=== PATIENT | male | born 1960 | race Caucasian/White ===

== ENCOUNTER → 2017-01-22 | Day surgery (SDC) | payer BC ==
[~2017-01-22] VITALS: Ht 175.2 cm; Wt 88.0 kg
[~2017-01-22] MED LIST: ALBUTEROL2.5 MG/0.5 INH; ASMANEX220 MCG INH; ASPIRIN CHILDRE81 MG PO; AVELOX400 MG PO; BENADRYL25 MG PO; DOXYCYCLINE HY100 M3 PO; FISH OIL CONC1000 M1 PO; HYDROCODONE BIT1 T11 PO; KEFLEX500 MG PO; LEVOFLOXACIN500 MG PO; LIVALO4 MG PO; MAGNESIUM ZINC PO; NAPROSYN500 MG PO; NEURONTIN800 MG PO; NORCO 325 MG-51 TAB PO; OMEPRAZOLE MAGN20 MG PO; PREDNISONE20 M1 PO; PROAIR HFA8.5 GM INH; ROBITUSSIN DM 105 ML PO; SYNTHROID0.125 MG PO; TOBREX OPHTH S2.5 ML OPH; TOBREX0.3% OP; TRAMADOL HCL50 MG PO; VENTOLIN0.09 MG/AC INH; VICO10300 PO; VICODIN ES 7501 TA1 PO; VICODIN PO; VITAMIN C1000 M5 PO; VITAMIN D34000 UNIT PO; ZOFRAN4 MG PO
--- NOTE | ~2017-01-22 | O ---
[place], [place] OPERATIVE NOTE NAME: GARY RIVERS [facility] #: [id number] UNIT #: [id number] ROOM: DOCTOR: NICHOLAS HUTCHISON DO BIRTHDATE: [birth year] DOS: 01/22/2017 PREOPERATIVE DIAGNOSIS: Left hand mass at the second metacarpophalangeal joint dorsally. POSTOPERATIVE DIAGNOSIS: Left hand mass at the second metacarpophalangeal joint dorsally. OPERATIVE PROCEDURE: Excision of the mass at the left hand second metacarpophalangeal joint. SURGEON: Nicholas Hutchison DO REMELT [employer] OPERATOR: Yelena. ANESTHESIA: Astrid, CROP RESEARCH SCIENTIST, Local, MAC. INDICATIONS: The patient is a 56-year-old male with a history of a laceration to his left hand at the second metacarpophalangeal joint dorsally. The laceration was about 6 or 7 months ago and he then developed a mass approximately 2 x 1.5 cm. The mass continued to enlarge and became painful. X-rays were negative. The risks and benefits of the procedure were explained to the patient preoperatively. Preoperative labs and x-rays were obtained. PROCEDURE IN DETAIL: The left hand was marked in the holding room. The patient was brought to the operative suite. Timeout was performed. Monitored anesthetic was performed by Anesthesia. The area about the second metacarpophalangeal joint dorsally was injected with Marcaine 0.5% plain. The hand was prepped and draped in the usual orthopedic manner. Tourniquet was placed at the wrist. The hand was elevated and the tourniquet was inflated to 250 mmHg. An incision was made sharply at the metacarpophalangeal joint of the index finger on the dorsal surface in a zigzag fashion. Subcutaneous tissue was spread with tenotomy scissors down to the level of the mass. Under loupe magnification, the mass was dissected down to the level of the extensor tendon. The mass appeared to be a fibrous bundle of tissue and this was removed and sent to the lab for further study. The extensor tendons were identified and evaluated and there appeared to be some damage to the extensor melo mechanism. This allowed the extensor digitorum to sublux in a radial direction. The extensor melo was repaired with a 3-0 Vicryl. Flexion and extension was passively performed and the tendon appeared to ride appropriately. No further fibrotic tissue was noted. The area was copiously irrigated with normal saline and closed with 4-0 Prolene in a horizontal mattress suture fashion. A dressing was applied, Xeroform, 4 x 4s, Webril, and an David bandage. The tourniquet was released. The patient was taken to recovery room in satisfactory condition. COUNTS: Sponge and needle counts correct. ESTIMATED BLOOD LOSS: 2 mL. DRAINS: None. [place], [place] OPERATIVE NOTE NAME: RIVERSGARY M UNIT #: [id number] ROOM: DOCTOR: NICHOLAS HUTCHISON DO BIRTHDATE: [birth year] PACKING: None. COMPLICATIONS: None. SPECIMENS: The fibrotic mass was sent to lab for further study. FINDINGS: Left hand fibrotic mass of the second metacarpophalangeal joint dorsally and tearing of the extensor melo mechanism. NICHOLAS HUTCHISON DO CM:OPRECORD:OPERATIVE NOTE [id number] NICHOLAS HUTCHISON DO 01/22/17 174 interface
== END | disposition home or self-care (01) ==
LOC: SDC 01-16 09:30
DX: R22.32 Localized swelling, mass and lump, left upper limb (principal); M79.5 Residual foreign body in soft tissue; M67.844 Other specified disorders of tendon, left hand; F41.9 Anxiety disorder, unspecified; F32.9 Major depressive disorder, single episode, unspecified; E07.9 Disorder of thyroid, unspecified; K21.9 Gastro-esophageal reflux disease without esophagitis; J44.9 Chronic obstructive pulmonary disease, unspecified; J45.909 Unspecified asthma, uncomplicated; M79.7 Fibromyalgia; Z82.49 Family history of ischemic heart disease and other diseases of the circulatory system; F17.210 Nicotine dependence, cigarettes, uncomplicated

== ENCOUNTER → 2017-02-05 | Outpatient (CLI) | payer BC | END | disposition home or self-care (01) | LOC: CT 08:55 | DX: J98.11 Atelectasis (principal); F17.200 Nicotine dependence, unspecified, uncomplicated ==

== ENCOUNTER 2017-03-02 23:08 | Inpatient (IN) | payer BC ==
[~2017-03-02] VITALS: Ht 175.2 cm; Wt 85.8 kg
--- NOTE | ~2017-03-02 | CON ---
[place], [place] REPORT OF CONSULTATION NAME: GARY RIVERS [facility] #: [id number] UNIT #: [id number] ROOM: 407 DOCTOR: SEAN RICHTER MDANA BIRTHDATE: [birth year] DOS: 03/03/2017 PULMONARY CONSULTATION EVALUATION AND MANAGEMENT REASON FOR CONSULTATION: To assess the patient for ongoing acute respiratory symptoms, shortness breath and others. HISTORY OF PRESENT ILLNESS: This is a 56-year-old white male for the patient who has been complaining of symptoms of shortness of breath, which was present for the past several weeks. The symptoms have been noted significantly worse in the past 3-4 days. He presented to the Emergency Room where he has been assessed and currently hospitalized for the patient for the management of acute exacerbation of COPD. The patient was noted with symptoms of significant chest tightness. Denies any pain in the chest. The coughing has been noted moderate to severe, nonproductive in nature and frequently. He was also noted wheezing intermittently. The patient denies symptoms of hemoptysis or chest trauma. REVIEW OF SYSTEMS: CONSTITUTIONAL: He does complain of symptoms of fatigue and tiredness without any symptoms of fever or chills. EYES: Denies any burning, redness, or tenderness. EARS, NOSE, THROAT SYMPTOMS: No sore throat, hoarseness, otalgia, postnasal drainage. CARDIOVASCULAR SYSTEM: Denies anginal pain, edema or pain of the lower extremities or palpitations. GASTROINTESTINAL SYMPTOMS: Denies dysphagia, nausea, vomiting, diarrhea, abdominal pain, hematemesis, melena or hematochezia. SKIN: No lesions or rashes. CENTRAL NERVOUS SYSTEM: Denies dizziness, headache, diplopia or syncopal episodes. Remaining systems were reviewed with the patient, they were noted all negative. PAST MEDICAL HISTORY: Noted, 1. History of bronchial asthma for the patient, severity unknown at the present time. 2. History of fibromyalgia. 3. Arthritis of the spine. 4. History of thyroid problem. 5. History of anxiety and depression. 6. History of hypercholesterolemia. 7. History of hiatal hernia. 8. History of intervertebral disk disease. SOCIAL HISTORY: The patient stated he is , has 6 children. Smoking started at his younger age, a pack of cigarettes per day and stated that he has not been smoking any cigarettes in the past 4 days. Denies any history of alcohol use or any illicit drug use. Denies any occupation related pulmonary exposure history. The patient stated that he has a disability for this patient, currently does not work related to fibromyalgia, back problems and breathing [place], [place] REPORT OF CONSULTATION NAME: GARY RIVERS UNIT #: [id number] ROOM: 407 DOCTOR: SEAN RICHTER MD,ANA BIRTHDATE: [birth year] issues. SURGICAL HISTORY: Described as lumbar laminectomy. FAMILY HISTORY: The patient was reported for coronary artery disease. MEDICATIONS: The current administered medications were noted as use of Flonase, aspirin, omeprazole, Synthroid, gabapentin, IV Solu-Medrol 30 mg q.8 hours, DuoNeb q.4 hours, Zithromax, and other p.r.n. medications administration. DRUG ALLERGY HISTORY: Noted for no known drug allergies. PHYSICAL EXAMINATION: GENERAL: This is a 56 years old male who has been currently noted without any acute distress at this time, sitting on the bed. Height of 5 feet 9 inches, weight of 189 pounds, BMI 27.9. VITAL SIGNS: Showed normal temperature, respiratory rate 16-20, heart rate of 93-62, blood pressure of 112/66-121/87. Pulse oxygen saturation of the patient recorded as saturation of % on room air. HEENT: Examination shows head was atraumatic. Eyes nonicterus. NECK: Supple. CARDIOVASCULAR SYSTEM: S1, S2 audible. LUNGS: The patient was noted without any crackles. Mild expiratory scattered wheezing was present. ABDOMEN: Flat, soft, nontender. Bowel sounds present. EXTREMITIES: Shows no edema, clubbing, or cyanosis. CENTRAL NERVOUS SYSTEM: Cranial nerves 2-12 intact. No focal deficit. SKIN: Visible. No lesions or rashes. MUSCULOSKELETAL SYMPTOMS: No obvious deformities. LABORATORY DATA: CBC of the patient on 03/02 for the patient was noted as normal CBC. The BMP of patient on 03/02 was essentially noted as normal. The chest x-ray, 1 view for the patient that was done on 03/02 shows basilar area of atelectasis for the patient without any acute pulmonary infiltration, hyperinflation of the lung was noted. IMPRESSION: 1. The patient who has been currently admitted to the hospital with progressive worsening of the respiratory symptoms with acute bronchial asthma exacerbation, severity unclarified for this patient with history of chronic nicotine dependence with recent tobacco cessation. 2. The patient with several other medical problems which has been known previously including hypothyroidism, intervertebral disk disease, fibromyalgia and others been treated as well. PLAN OF TREATMENT: Continue current dose of steroids, bronchodilators and the antibiotics. The patient already has an established appointment to be seen in my office in the next several days, which will be kept. If the patient needed to be discharged home, he could be discharged home on oral tapering prednisone, oral antibiotics and short acting bronchodilators. He has been also scheduled [place], [place] REPORT OF CONSULTATION NAME: GARY RIVERS UNIT #: [id number] ROOM: 407 DOCTOR: ANA HUA MD BIRTHDATE: [birth year] for the stress testing to be done today for this patient as well. ANA ESTRADA MD CM:CONSTR:REPORT OF CONSULTATION 1042 03/03/17 2213 interface
--- NOTE | ~2017-03-02 | WRIGHTHP ---
[place], [place] PATIENT HISTORY AND PHYSICAL EXAM NAME: GARY RIVERS [facility] #: [id number] UNIT #: [id number] ROOM: 407 DOCTOR: KODAK RICHARD MD BIRTHDATE: [birth year] DOS: 03/03/2017 HISTORY OF PRESENT ILLNESS: This patient is 28-rxnil-hog. Patient with complaints of chest tightness and shortness of breath. The patient states that he has been having flu-like illness last few days. Yesterday, he noticed chest tightness and increased shortness of breath, so decided to come into the Emergency Room. He denies having any fever, any chills, any abdominal pain, any nausea, and any emesis. Does not have any fever or chills. PAST MEDICAL HISTORY: Significant for; 1. Asthma for the last 5 years. He was diagnosed by Dr. Hernandes many years ago. He does not take any steroids, inhalers. He just uses ProAir inhaler. 2. Tobacco dependence, quit smoking about 4 days ago as per the patient. 3. Fibromyalgia. 4. Chronic low back pain for which he is on disability. MEDICATIONS: He is on are ascorbic acid 1000 mg daily, aspirin 81 daily, vitamin D 4000 units daily, gabapentin 800 t.i.d., levothyroxine 150 mcg daily, omeprazole 40 b.i.d., Vicodin 10 t.i.d. SOCIAL HISTORY: Nonsmoker, does not use any alcohol. ____ is a smoker of about half to 1 pack of cigarettes for the last 40 years. Denies using any alcohol. PHYSICAL EXAMINATION: GENERAL: He is awake and alert and oriented in no major distress. VITAL SIGNS: Blood pressure is 128/80, pulse of 50, respirations 24, temperature 97.7. LUNGS: Diminished breath sounds. No wheezes, rales or rhonchi heard this morning. HEART: Regular. ABDOMEN: Obese, soft, nontender. EXTREMITIES: Without any edema. ASSESSMENT AND PLAN: 1. The patient admitted with chest pain and tightness in the chest and shortness of breath. He was a heavy smoker, has increased risk factors for heart disease. We will be admitting, patient has been scheduled for an echocardiogram and a stress test. 2. Mild intermittent asthma poorly controlled from lack of using appropriate inhalers. He is only taking a rescue inhaler will add Asmanex to his regimen. 3. Tobacco dependence, advised against smoking. [place], [place] PATIENT HISTORY AND PHYSICAL EXAM [id number] #: [id number] ROOM: [facility] DOCTOR: KODAK RICHARD MD BIRTHDATE: [birth year] KODAK RICHARD MD CM:HISPHYS:PATIENT HISTORY AND PHYSICAL EXAMINATION [id number] KODAK RICHARD MD 03/03/17 0755 interface
--- NOTE | ~2017-03-02 | ST ---
[place], [place] EXERCISE STRESS TEST REPORT NAME: GARY RIVERS [facility] #: [id number] UNIT #: [id number] ROOM: 407 DOCTOR: MADHAV SANDERS MD BIRTHDATE: [birth year] DOS: 03/04/2017 EXERCISE CARDIOLITE STRESS TEST The patient is 56 years old, 68 inches tall and weighing 189 pounds. TECHNIQUE: The patient was stressed under standard Francis protocol and he exercised for total of 5 minutes and 15 seconds. The test was stopped because of patient's fatigue. He reached a maximum heart rate of 140 beats per minute, which was 85% of the PMI chart. Cardiolite was injected at 85% PMI chart. Maximum blood pressure was 142 systolic over 78 diastolic. The patient developed significant shortness of breath during the exercise phase. The patient's baseline EKG showed normal sinus rhythm at a heart rate of 76 beats per minute, normal cardiac axis, no significant ST-T abnormality. During the exercise and recovery phase, the patient did not develop any significant EKG abnormalities compatible with myocardial ischemia. No cardiac dysrhythmias were observed. The patient remained chest pain free, but he was short of breath all along or during the exercise. IMPRESSION: The patient with normal EKG part of the treadmill exercise test at 85% PMI chart. Nuclear scan result to be reported separately by Cardiology later today. MADHAV SANDERS MD CM:STRESS:EXERCISE STRESS TEST REPORT [id number] MADHAV SANDERS MD
--- NOTE | ~2017-03-02 | CON ---
[place], [place] REPORT OF CONSULTATION NAME: GARY RIVERS UNIT #: [id number] ROOM: 407 DOCTOR: UCHE DALTON MD BIRTHDATE: [birth year] DOS: 03/04/2017 GASTROENDOSCOPIC REPORT HISTORY OF PRESENT ILLNESS: This is a 56 years old patient who has presented from Emergency Room with shortness of breath and history of COPD, undergoing investigation. The patient has been on antibiotics, breathing treatment and pulmonary management. The patient has had history of colonic polyp. I have been consulted regarding management of the followup for colonic polyp and dyspepsia. PAST MEDICAL HISTORY: Associated with asthma exacerbation. PAST SURGICAL HISTORY: Minor corneal abrasion and lacerations. Laminectomy, colonoscopy and EGDs in the past. SOCIAL HISTORY: Smoker, nonalcohol consumer. FAMILY HISTORY: Coronary artery disease. MEDICATIONS: List has been reviewed. REVIEW OF SYSTEMS: In general, HEENT: Denies double vision, blurred vision. RESPIRATORY: Admits to shortness of breath and cough. CARDIOVASCULAR: Denies chest pain. DIGESTIVE SYSTEM: No hematemesis, no hematochezia. Dyspepsia, history of colonic polyp. Review of other systems within normal limits. PHYSICAL EXAMINATION: VITAL SIGNS: Stable. HEENT: Head normocephalic, nontraumatic. Mouth and buccal mucosa benign. NECK: Supple, no thyromegaly. CHEST: Symmetric anatomy, equal expansion. No wheeze now, no rhonchi now. HEART: Normal sinus rhythm, no gallop, no murmur. ABDOMEN: Soft. No hepato-organomegaly. Bowel sounds present. No pulsatile mass. EXTREMITIES: No cyanosis, no pedal edema. NEUROLOGIC: Alert, oriented to time, place, and person. Labs reviewed. Records reviewed. Pulmonary consultation is noticed. IMPRESSION: Fibromyalgia, asthma, hypothyroid issues, hyperlipidemia, hiatal hernia, colonic polyp, dyspepsia, anxiety, depression, chronic lower back pain history, and surgical approach. His H and H is 15 and 44, white blood cell 8. Basic metabolic panel within normal limits. GFR greater than 60. [place], [place] REPORT OF CONSULTATION NAME: GARY RIVERS UNIT #: [id number] ROOM: 407 DOCTOR: SHA DOUGLAS,UCHE LESLIEDATE: 60 PLAN AND DISCUSSION: We are going to make arrangement as outpatient followup for EGD and colonoscopy. UCHE DALTON MD CM:CONSTR:REPORT OF CONSULTATION 1026 03/05/17 0321 interface
--- NOTE | ~2017-03-02 | PR ---
[place], [place] PROGRESS NOTE [id number] #: [id number] ROOM: 407 DOCTOR: KODAK RICHARD MD BIRTHDATE: [birth year] DOS: 03/04/2017 SUBJECTIVE: The patient is doing fine without any complaint. Denies any chest pains, palpitations or shortness of breath. OBJECTIVE: VITAL SIGNS: Graphic trend shows a pressure 130/85, pulse of 86, respirations 18, temperature 97.4. LUNGS: Clear. HEART: Regular. ABDOMEN: Soft. EXTREMITIES: Without any edema. IMAGING: Echocardiogram shows mild LVH. ASSESSMENT AND PLAN: 1. Precordial chest pain, awaiting a stress test this morning. 2. Mild intermittent asthma, poorly controlled. The patient has been maximized steroid inhaler. 3. Tobacco dependence. The patient is advised against smoking. After the stress test is done today, the patient should be able to go home today. KODAK RICHARD MD CM:PNTRANS [id number] KODAK RICHARD MD 03/05/17 0124 interface
[2017-03-02 23:20] VITALS: BP 128/89
[2017-03-02] MEDS ORDERED: SYNTHROID0.15 MG PO (23:25)
[2017-03-02 23:57] VITALS: BP 112/82
[2017-03-02 23:57] LABS: BUN 16 mg/dl (7-24); CARBON DIOXIDE 24 mmol/L (21-32); CHLORIDE 109 mmol/L (98-107); EST GLOM FILT AFRICAN AMERICAN > 60 ml/min; GLUCOSE 88 mg/dL (65-99); POTASSIUM 4.3 mmol/L (3.5-5.1); SODIUM 144 mmol/L (136-145)
[2017-03-03] VITALS (7 sets, daily range): BP systolic 109–139; BP diastolic 53–87
[2017-03-03 00:03] LABS: BASO % 0.4 % (0.0-1.0); EOS # 0.1 10*3/uL (0.0-0.4); EOS % 1.6 % (1.0-4.0); HEMATOCRIT 44.4 % (42.0-52.0); HEMOGLOBIN 15.4 g/dl (14.0-18.0); LYMPH # 3.5 10*3/uL (1.3-4.4); LYMPH % 39.4 % (27.0-41.0); MEAN CELL VOLUME 89.5 fl (80.0-94.0); MEAN CORPUSCULAR HGB CONC 34.7 g/dl (33.0-37.0); MEAN PLATELET VOLUME 9.6 fl (9.6-12.3); MONO # 0.9 10*3/uL (0.1-1.0); MONO % 10.1 % (3.0-9.0); NEUT # 4.3 10*3/uL (2.3-7.9); NEUT % 48.4 % (47.0-73.0); PLATELET COUNT AUTOMATED 198 10*3/uL (130-400); RED BLOOD COUNT 4.96 10*6/uL (4.50-5.90); RED CELL DISTRI WIDTH 13.2 % (0-14.5); WHITE BLOOD COUNT 8.9 10*3/uL (4.8-10.8)
[2017-03-03] MEDS ORDERED: VICODIN PO (02:27)
[2017-03-03] MEDS ORDERED: NEBULIZER (07:06)
[2017-03-04] VITALS: BP 130/85
[2017-03-04] MEDS ORDERED: ARNUITY EL100 MCG/Ac INH (06:41)
[2017-03-04] MEDS ORDERED: CARDIZEM120 MG PO (06:42)
[2017-03-04] MEDS ORDERED: DUONEB 3 MG/3 ML3 M1 INH (06:42)
[2017-03-04 08:00] VITALS: BP 133/79
[2017-03-04 16:00] VITALS: BP 129/82
[2017-03-05] MEDS ORDERED: ACETAMINOPHEN &1 TA1 PO (13:48)
== END 2017-03-04 16:26 | disposition home or self-care (01) | DRG 203 ==
LOC: ED 23:08 → EDHOLD 03-03 01:44 → 4E 03-03 01:44
PROVIDERS: Emergency Medicine Emergency Medical Services
PROC: 4A02XM4 Measurement of Cardiac Total Activity, External Approach (ICD-10-PCS; principal; 2017-03-04)
DX: J45.21 Mild intermittent asthma with (acute) exacerbation (principal); J43.9 Emphysema, unspecified; F32.9 Major depressive disorder, single episode, unspecified; R07.2 Precordial pain; F17.200 Nicotine dependence, unspecified, uncomplicated; J45.909 Unspecified asthma, uncomplicated; E03.9 Hypothyroidism, unspecified; M79.7 Fibromyalgia; E78.5 Hyperlipidemia, unspecified; K44.9 Diaphragmatic hernia without obstruction or gangrene; K63.5 Polyp of colon; R10.13 Epigastric pain; F41.9 Anxiety disorder, unspecified; G89.29 Other chronic pain; M54.5 Low back pain; E78.00 Pure hypercholesterolemia, unspecified; K21.9 Gastro-esophageal reflux disease without esophagitis; Z80.3 Family history of malignant neoplasm of breast; Z79.82 Long term (current) use of aspirin; Z82.49 Family history of ischemic heart disease and other diseases of the circulatory system; Z79.899 Other long term (current) drug therapy

== ENCOUNTER 2017-03-05 13:38 | Inpatient (IN) | payer BC ==
[~2017-03-05] VITALS: Ht 175.2 cm; Wt 86.2 kg
--- NOTE | ~2017-03-05 | PROC NOTE ---
[place], [place] PROCEDURE NOTE NAME: GARY RIVERS [facility] #: [id number] UNIT #: [id number] ROOM: 520 DOCTOR: SEAN RICHTER MD,ANA BIRTHDATE: [birth year] DOS: 03/09/2017 PREOPERATIVE DIAGNOSIS: The patient's bronchoscopy is area of atelectasis right lower lobe with the patient's cough and leukocytosis. POSTOPERATIVE DIAGNOSES: The patient's bronchoscopy is area of atelectasis right lower lobe with the patient's cough and leukocytosis. PROCEDURE DESCRIPTION: Informed consent obtained from the patient. The patient brought to the OR and placed in supine position. Conscious sedation was administered by the Anesthesia Department. After achieving appropriate sedation, airway introduced into the mouth. Bronchoscope advanced into the airway into laryngeal area. Epiglottis and vocal cords were seen. The vocal cords were moving symmetrically with movements. Bronchoscope advanced through the vocal cord into the tracheal lumen. Tracheal lumen for the patient was noted with small amount of secretion in patient, which was suctioned out at the balwinder level. The balwinder noted. The right upper, right middle, right lower, left upper, lingular lower lobe bronchi were all examined. There was no significant secretion noted in his remaining endobronchial tree. The bronchial washing of the patient was taken in the right lower lobe endobronchial tree for this patient, which has been sent for the culture. Procedure well tolerated by the patient. Postoperative findings were discussed with the patient's spouse in detail after completion of the procedure. ANA ESTRADA MD CM:PROCNOTE:PROCEDURE NOTE [phone] ANA RICHTER MD
--- NOTE | ~2017-03-05 | PR ---
[place], [place] PROGRESS NOTE NAME: GARY RIVERS [facility] #: [id number] UNIT #: [id number] ROOM: 520 DOCTOR: SEAN RICHTER MD,ANA BIRTHDATE: [birth year] DOS: 03/09/2017 SUBJECTIVE: The patient was seen and examined on 03/09/2017. He has been noted comfortable patient. He has been noted with partial reduction of respiratory symptoms noted with a cough, which was noted nonproductive. There are symptoms of chest pain, chest tightness, the patient noted it to be partially decreased. OBJECTIVE: VITAL SIGNS: Normal temperature, respiratory rate 16, heart rate 75, blood pressure 140/82. Pulse oxygen saturation on room air was 94% saturation recorded. HEENT: Examination shows no acute change. NECK: Supple. CARDIOVASCULAR: S1, S2 audible. LUNGS: Shows decreased breath in the right lower lung. ABDOMEN: Soft, nontender. IMPRESSION: 1. The patient with area of atelectasis in the patient's right lower lobe, possibility of acute pneumonia suspected ____. 2. Rule out right diaphragmatic paralysis as well. 3. Leukocytosis remains persistent. PLAN OF TREATMENT: Continue antibiotics, bronchodilators and oxygen supplementation. Proceed with bronchoscopy as planned. The patient already noted n.p.o. past midnight for the procedure. Usual care, other further supportive treatment. Any other modification of treatment if necessary will be done after bronchoscopy. ANA ESTRADA MD CM:PNTRANS [phone] ANA RICHTER MD 03/10/17 0300 interface
--- NOTE | ~2017-03-05 | CON ---
[place], [place] REPORT OF CONSULTATION [id number] UNIT #: [id number] ROOM: 520 DOCTOR: SEAN RICHTER MD,ANA BIRTHDATE: [birth year] DOS: 03/06/2017 PULMONARY CONSULTATION EVALUATION AND MANAGEMENT This also would be considered history and physical examination of the patient for Dr. Higginbotham as well. REASON FOR ADMISSION AND CONSULTATION: Symptoms of shortness of breath. HISTORY OF PRESENT ILLNESS: This is a 56-year-old white male who has been recently admitted to the hospital. The patient was seen on 03/03/2017 as consultation for assessment of symptoms of shortness breath. He underwent cardiac stress testing as well and then discharged home on 03/04/2017. The patient returned back to the Emergency Room on 03/05/2017, stated that he has been noted with excessive severe pressure in the chest, which has been noted significantly worsened for this patient in the home settings. He has been using his nebulized bronchodilator for this patient, as stated that it has not been helping him to relieve his respiratory symptoms. Symptoms remain persistent from yesterday as well. He does have some cough, but there was no sputum expectoration. The patient denies any symptoms of chest pain. The shortness of breath of the patient occurred with moderate exertion as well. The wheezing of the patient also described at times. He denies symptoms of hemoptysis or any chest trauma. REVIEW OF SYSTEMS: CONSTITUTIONAL: He was still noted with symptoms of fatigue, tiredness as previously without any changes. Denies symptoms of fever or chills. EYES: Denies any burning, redness, or tenderness. EARS, NOSE, THROAT: No sore throat, hoarseness, otalgia, postnasal drainage or epistaxis. CARDIOVASCULAR: Denies anginal pain, edema of the lower extremities or palpitations. GASTROINTESTINAL: Denies dysphagia, nausea, vomiting, diarrhea, abdominal pain, hematemesis, melena, or hematochezia. SKIN: Denies lesions or rashes. MUSCULOSKELETAL: No acute joint pain. CENTRAL NERVOUS SYSTEM: Denies any diplopia, syncopal episode, tingling sensations. Remaining systems were reviewed with the patient, they were noted all negative. PAST MEDICAL HISTORY: Noted as: 1. Bronchial asthma, severity unknown. 2. Fibromyalgia. 3. Hypothyroidism. 4. General anxiety and depression. 5. Hypercholesterolemia. 6. Hiatal hernia as well. 7. Intervertebral disk disease. [place], [place] REPORT OF CONSULTATION NAME: GARY RIVERS UNIT #: [id number] ROOM: [facility] DOCTOR: SEAN RICHTER MD,ANA BIRTHDATE: [birth year] SOCIAL HISTORY: The patient is , has 6 children. Denies history of alcohol or illicit drug use. Tobacco use for this patient noted since younger age, a pack of cigarettes per day and not smoking any cigarettes so far at this time for the past 7 days. Denies any history of occupation related pulmonary exposure. The patient stated he has been disabled from his job because of fibromyalgia and some breathing issues. PAST SURGICAL HISTORY: Noted lumbar laminectomy. FAMILY HISTORY: Reported for coronary artery disease. MEDICATIONS: The home medications for the patient, which has been listed on admission, use of Cardizem-CD, aspirin, levothyroxine, Neurontin 800 mg q.8 hours, omeprazole and others. ALLERGIES: The drug allergy history of the patient noted as no known drug allergies. PHYSICAL EXAMINATION: GENERAL: A 56-year-old white male who has been currently sitting on the side of bed without any distress. Height of 5 feet 9 inches, weight of 190 pounds, BMI 28.0. VITAL SIGNS: For the patient, which have been recorded showed the temperature noted normal in last 24 hours. Respiratory rate of patient recorded 24-18. Heart rate 56-71, blood pressure 140/92-111/71. Pulse oxygen saturation of the patient noted on room air 93% saturation. HEENT: Examination shows head was atraumatic. Eyes nonicterus. NECK: Supple. CARDIOVASCULAR: S1, S2 is audible. LUNGS: The patient was noted without any crackles, rhonchi, or wheezing. Bronchial breathing for the patient was heard in the right lower portion of the lung. ABDOMEN: Soft, flat, nontender, bowel sounds present. CENTRAL NERVOUS SYSTEM: Nonfocal. EXTREMITIES: Showed no edema, clubbing, cyanosis. MUSCULOSKELETAL: No deformities. SKIN: No lesions or rashes. LABORATORY DATA: The myocardial Cardiolite stress test for patient that was done on 03/04/[address] Castillo, was described as a normal study for this patient. Left ventricular ejection fraction was also noted at 82%. BMP for this patient that was done yesterday on admission was noted essentially normal BMP, proBNP minimally elevated at 320 with normal troponin. CBC of the patient that was done on 03/05/2017, WBC count 13,000, otherwise normal CBC. Chest x-ray of the patient, 1 view, shows elevation of right hemidiaphragm with basilar area of atelectasis, right lower lobe. The finding was noted essentially the same as 03/02/2017. CT scan of the chest in January 2017 for this patient was also reviewed that shows elevation of right hemidiaphragm, basilar area of atelectasis and/or infiltration. [place], [place] REPORT OF CONSULTATION NAME: GARY RIVERS UNIT #: [id number] ROOM: [facility] DOCTOR: ANA HUA MD BIRTHDATE: [birth year] IMPRESSION: 1. The patient who has been currently admitted to the hospital with symptoms currently described as tightness in the chest, may be related to underlying anxiety disorder. Additionally, may be exacerbated because of the possibility of right diaphragmatic paralysis with area of atelectasis, pneumonia cannot be completely excluded with current area of atelectasis. 2. The patient with history of past tobacco use, recent tobacco cessation. 3. History of fibromyalgia. 4. Chronic intervertebral disk disease as well. 5. History of bronchial asthma and/or chronic obstructive pulmonary disease requiring further assessment as an outpatient. PLAN OF TREATMENT: The patient has been ordered a CT of the chest because the current symptoms of shortness of breath remains persistent, also ordering the fluoroscopy of the right diaphragm for this patient, rule out diaphragmatic paralysis. If the diaphragmatic paralysis confirmed, it probably would be idiopathic in origin unless any mediastinal abnormality detected with CTA of the chest. In the meantime, continue other previous treatment plan of management, usual care and the supportive therapies. ANA ESTRADA MD CM:CONSTR:REPORT OF CONSULTATION 1135 03/07/17 0504 interface
--- NOTE | ~2017-03-05 | PR ---
[place], [place] PROGRESS NOTE NAME: GARY RIVERS [facility] #: [id number] UNIT #: [id number] ROOM: 520 DOCTOR: SEAN RICHTER MD,ANA BIRTHDATE: [birth year] DOS: 03/10/2017 PULMONARY PROGRESS NOTE SUBJECTIVE: The patient has been noted without any ongoing acute respiratory complaints at this time. Minimal cough was noted. There was no sputum expectoration. There were no symptoms of chest pain. He has been ambulating. OBJECTIVE: VITAL SIGNS: Normal temperature, respiratory rate 20, heart rate 61, blood pressure 132/88. The pulse oxygen saturation on room air 93% saturation. HEENT: No acute change. NECK: Supple. CARDIOVASCULAR: S1, S2 audible. LUNGS: Decreased breath sounds in the right lower lung. ABDOMEN: Soft, nontender. LABORATORY DATA: Gram stain of the bronchial washing, moderate white blood cells, epithelial cells with moderate gram-positive cocci in pairs and clusters, few gram-positive bacilli and moderate budding yeast preliminarily noted as normal olayinka. The fluoroscopy of the right hemidiaphragm was noted consistent with finding of right diaphragmatic paralysis. IMPRESSION: 1. The patient with right lower lobe atelectasis, less infiltration pneumonia with leukocytosis. 2. Paralysis of the right hemidiaphragm. PLAN OF TREATMENT: Repeat another CBC of the patient this morning, monitor culture results, could be discharged home on oral antibiotics with outpatient followup for further pulmonary eval. Assessment and management has been discussed with the patient's spouse as well. ANA ESTRADA MD CM:PNTRANS [id number] ANA RICHTER MD 03/11/17 0513 interface
--- NOTE | ~2017-03-05 | PR ---
[place], [place] PROGRESS NOTE NAME: GARY RIVERS UNIT #: [id number] ROOM: 520 DOCTOR: ANA HUA MD BIRTHDATE: [birth year] DOS: 03/07/2017 PULMONARY PROGRESS NOTE SUBJECTIVE: The patient has been noted with partial improvement of the symptoms of tightness in the chest and shortness of breath, was getting intravenous antibiotics for the patient for the suspected acute pneumonia. The CTA of the chest for the patient was noted completed yesterday. OBJECTIVE: VITAL SIGNS: Showed normal temperature, respiratory rate 20, heart rate 83, blood pressure 133/77, pulse oxygen saturation was noted on room air 92% saturation. HEENT: Examination shows no acute change. NECK: Supple. CARDIOVASCULAR SYSTEM: S1, S2 audible. LUNGS: The patient was noted without any wheezing or crackles at present time. Decreased breath sounds in the right lower lung as previously noted. ABDOMEN: Soft, nontender. LABORATORY DATA: The CT of the chest for this patient that was done for this patient was reviewed for this patient shows area of infiltration and some atelectasis right lower lobe for the patient. The elevation of right hemidiaphragm was noted. There was no evidence of pulmonary embolism or other acute abnormalities. The PT/INR of the patient noted as normal today, 1.0. CMP this morning, normal BUN and creatinine. CBC today, WBC count 16.7, hemoglobin 13.6, hematocrit 40.8, platelet count of 216,000. IMPRESSION: 1. The patient with possibility of acute pneumonia. The patient with gram-positive organism for the patient with superimposed area of atelectasis. 2. Rule out right diaphragmatic paralysis for the patient. PLAN OF TREATMENT: The patient has been ordered the chest x-ray of the patient with fluoroscopy to rule out the right diaphragmatic paralysis which was pending at the present time. The results of the x-ray of the patient will be reviewed for this patient once the study is completed. In the meantime, continue the antibiotics, bronchodilators, oxygen supplementation. Monitor white cell count. Other supportive therapy, plan of management and care. Usual treatment. [place], [place] PROGRESS NOTE NAME: GARY RIVERS UNIT #: [id number] ROOM: 520 DOCTOR: ANA HUA MD BIRTHDATE: [birth year] ANA ESTRADA MD CM:MARKELLTRANS [id number] ANA RICHTER MD 03/08/17 0521 interface
--- NOTE | ~2017-03-05 | PR ---
[place], [place] PROGRESS NOTE [id number] UNIT #: [id number] ROOM: 520 DOCTOR: ANA HUA MD BIRTHDATE: [birth year] DOS: 03/08/2017 SUBJECTIVE: The patient has been noted without any acute new respiratory complaints at the present time still noted with the coughing and shortness of breath as previously with tightness in the chest intermittently. He was continued on the antibiotics. Denies symptoms of chest pain or any abdominal pain. OBJECTIVE: VITAL SIGNS: For the patient, which has been recorded showed the temperature of the patient noted as normal. The respiratory rate recorded at 20, heart rate of 74. The blood pressure noted 137/77. HEENT: Examination shows no acute change. NECK: Supple. CARDIOVASCULAR: S1, S2 is audible. LUNGS: The patient was noted without any wheezing or crackles. Decreased breath sounds in the right lower lung of the patient noted as previously. ABDOMEN: Soft, nontender and flat. EXTREMITIES: Showed no edema, clubbing or cyanosis. LABORATORY DATA: CMP for the patient that was done this morning was noted with normal BUN and creatinine. Glucose was normal. Remaining CMP is normal. CBC: WBC count 18.6, hemoglobin and hematocrit was normal, platelet count was normal. IMPRESSION: 1. The patient with a right lower lobe atelectasis, possibly superimposed acute pneumonia. 2. Rule out right diaphragmatic hemiparesis, most likely idiopathic if confirmed. PLAN OF TREATMENT: The patient has been assessed for bronchoscopy done tomorrow morning for further assessment of the area of atelectasis of the right lower lobe. In the meantime, continue the previous treatment, plan of management without any changes. Other supportive therapy, plan of management and risk and benefits of the procedure were discussed with the patient, and he was agreeable for the procedure. [place], [place] PROGRESS NOTE NAME: GARY RIVERS UNIT #: [id number] ROOM: 520 DOCTOR: ANA HUA MD BIRTHDATE: [birth year] ANA ESTRADA MD CM:PNTRANS [id number] ANA RICHTER MD 03/09/17 0245 interface
[~2017-03-05 13:38] MED LIST changes: +ARNUITY EL100 MCG/Ac INH; +CARDIZEM120 MG PO; +DUONEB 3 MG/3 ML3 M1 INH; +NEBULIZER; +SYNTHROID0.15 MG PO
[2017-03-05 13:42] VITALS: BP 116/85
[2017-03-05] MEDS ORDERED: ACETAMINOPHEN &1 TA1 PO (13:48)
[2017-03-05 14:15] LABS: HEMATOCRIT 42.7 % (42.0-52.0); HEMOGLOBIN 14.6 g/dl (14.0-18.0); MEAN CELL VOLUME 91.6 fl (80.0-94.0); MEAN CORPUSCULAR HGB 31.3 pg (27.0-31.0); MEAN CORPUSCULAR HGB CONC 34.2 g/dl (33.0-37.0); MEAN PLATELET VOLUME 9.4 fl (9.6-12.3); PLATELET COUNT AUTOMATED 199 10*3/uL (130-400); RED BLOOD COUNT 4.66 10*6/uL (4.50-5.90); RED CELL DISTRI WIDTH 13.6 % (0-14.5); WHITE BLOOD COUNT 13.8 10*3/uL (4.8-10.8)
[2017-03-05 14:32] LABS: BUN 18 mg/dl (7-24); CARBON DIOXIDE 27 mmol/L (21-32); CHLORIDE 108 mmol/L (98-107); EST GLOM FILT AFRICAN AMERICAN > 60 ml/min; GLUCOSE 93 mg/dL (65-99); POTASSIUM 4.1 mmol/L (3.5-5.1); SODIUM 144 mmol/L (136-145); TROPONIN I < 0.015 ng/ml (<0.045)
[2017-03-05 14:35] LABS: EOSINOPHIL # 0.1 10*3/uL (0-0.4); EOSINOPHILS 1 % (1-4); LYMPHOCYTE # 3.7 10*3/uL (1.3-4.4); MONOCYTE # 0.8 10*3/uL (0.1-1.0); NEUTROPHIL # 9.1 10*3/uL (2.3-7.9); NEUTROPHILS 66 % (47-73); TOTAL CELLS COUNTED 100 #CELLS
[2017-03-05 14:36] LABS: PLATELET SUFFICIENCY NORMAL (NORMAL)
[2017-03-05 14:59] VITALS: BP 115/76
[2017-03-05 16:00] VITALS: BP 118/60
[2017-03-05 20:42] VITALS: BP 120/56
[2017-03-06] VITALS: BP 111/71
[2017-03-06 08:00] VITALS: BP 140/92
[2017-03-06 12:00] VITALS: BP 126/76
[2017-03-06 16:00] VITALS: BP 112/70
[2017-03-06 20:00] VITALS: BP 138/74
[2017-03-07] VITALS: BP 135/88
[2017-03-07 06:56] LABS: BASO % 0.1 % (0.0-1.0); HEMATOCRIT 40.8 % (42.0-52.0); HEMOGLOBIN 13.8 g/dl (14.0-18.0); IG # 0.3 10*3/uL (0.0-0.1); LYMPH # 2.6 10*3/uL (1.3-4.4); LYMPH % 15.5 % (27.0-41.0); MEAN CELL VOLUME 91.5 fl (80.0-94.0); MEAN CORPUSCULAR HGB 30.9 pg (27.0-31.0); MEAN CORPUSCULAR HGB CONC 33.8 g/dl (33.0-37.0); MEAN PLATELET VOLUME 9.6 fl (9.6-12.3); MONO # 0.9 10*3/uL (0.1-1.0); MONO % 5.1 % (3.0-9.0); NEUT % 77.5 % (47.0-73.0); PLATELET COUNT AUTOMATED 216 10*3/uL (130-400); RED BLOOD COUNT 4.46 10*6/uL (4.50-5.90); RED CELL DISTRI WIDTH 13.4 % (0-14.5); WHITE BLOOD COUNT 16.7 10*3/uL (4.8-10.8)
[2017-03-07 07:13] LABS: PROTHROMBIN TIME 10.6 SECONDS (9.0-12.4)
[2017-03-07 07:19] LABS: ALBUMIN 3.2 gm/dl (3.1-4.5); ALKALINE PHOSPHATASE 57 U/L (45-117); BILIRUBIN, TOTAL 0.3 mg/dl (0.2-1.0); BUN 17 mg/dl (7-24); CARBON DIOXIDE 29 mmol/L (21-32); CHLORIDE 107 mmol/L (98-107); CHOLESTEROL 200 mg/dL (<200); EST GLOM FILT AFRICAN AMERICAN > 60 ml/min; GLUCOSE 122 mg/dL (65-99); HDL CHOLESTEROL 65 mg/dl (40-60); LDL CHOLESTEROL 121 mg/dL (9-159); MAGNESIUM 2.5 mg/dL (1.5-2.1); PHOSPHOROUS 3.7 mg/dL (2.5-4.9); POTASSIUM 4.2 mmol/L (3.5-5.1); SGOT/AST 40 IU/L (3-35); SGPT/ALT 132 U/L (12-78); SODIUM 143 mmol/L (136-145); THYROXINE (T4) TOTAL 8.1 ug/dl (4.5-12.1); TOTAL PROTEIN 6.2 gm/dL (6.4-8.2); TRIGLYCERIDES 68 mg/dl (<150); VLDL CHOLESTEROL 14 mg/dL (6-40)
[2017-03-07 07:24] LABS: THYROID STIM HORMONE (HS) 0.364 uIU/ml (0.358-4.75)
[2017-03-07 07:35] LABS: HEMOGLOBIN A1c 5.7 % (4.8-5.6)
[2017-03-07 08:00] VITALS: BP 140/88
[2017-03-07 12:00] VITALS: BP 133/77
[2017-03-07 16:00] VITALS: BP 117/78
[2017-03-07 20:00] VITALS: BP 127/84
[2017-03-08] VITALS: BP 134/85
[2017-03-08 06:13] LABS: HEMATOCRIT 44.5 % (42.0-52.0); HEMOGLOBIN 15.3 g/dl (14.0-18.0); MEAN CELL VOLUME 91.8 fl (80.0-94.0); MEAN CORPUSCULAR HGB 31.5 pg (27.0-31.0); MEAN CORPUSCULAR HGB CONC 34.4 g/dl (33.0-37.0); MEAN PLATELET VOLUME 9.2 fl (9.6-12.3); PLATELET COUNT AUTOMATED 251 10*3/uL (130-400); RED BLOOD COUNT 4.85 10*6/uL (4.50-5.90); RED CELL DISTRI WIDTH 13.2 % (0-14.5); WHITE BLOOD COUNT 18.6 10*3/uL (4.8-10.8)
[2017-03-08 06:39] LABS: LYMPHOCYTE # 2.6 10*3/uL (1.3-4.4); METAMYELOCYTES 3 % (0-0); MONOCYTE # 0.7 10*3/uL (0.1-1.0); NEUTROPHIL # 14.7 10*3/uL (2.3-7.9); NEUTROPHILS 79 % (47-73); PLATELET SUFFICIENCY NORMAL (NORMAL); TOTAL CELLS COUNTED 100 #CELLS
[2017-03-08 06:41] LABS: ALBUMIN 3.1 gm/dl (3.1-4.5); BUN 18 mg/dl (7-24); CARBON DIOXIDE 29 mmol/L (21-32); CHLORIDE 105 mmol/L (98-107); EST GLOM FILT AFRICAN AMERICAN > 60 ml/min; GLUCOSE 113 mg/dL (65-99); POTASSIUM 4.3 mmol/L (3.5-5.1); SGOT/AST 26 IU/L (3-35); SGPT/ALT 127 U/L (12-78); SODIUM 141 mmol/L (136-145)
[2017-03-08 06:44] LABS: ALKALINE PHOSPHATASE 62 U/L (45-117); BILIRUBIN, TOTAL 0.2 mg/dl (0.2-1.0); TOTAL PROTEIN 6.4 gm/dL (6.4-8.2)
[2017-03-08 08:00] VITALS: BP 140/77
[2017-03-08 12:00] VITALS: BP 137/77
[2017-03-08 16:00] VITALS: BP 128/81
[2017-03-08 20:00] VITALS: BP 124/81
[2017-03-09] VITALS (9 sets, daily range): BP systolic 123–178; BP diastolic 58–98
[2017-03-09 06:47] LABS: HEMATOCRIT 44.5 % (42.0-52.0); HEMOGLOBIN 15.2 g/dl (14.0-18.0); MEAN CELL VOLUME 91.6 fl (80.0-94.0); MEAN CORPUSCULAR HGB 31.3 pg (27.0-31.0); MEAN CORPUSCULAR HGB CONC 34.2 g/dl (33.0-37.0); MEAN PLATELET VOLUME 9.2 fl (9.6-12.3); PLATELET COUNT AUTOMATED 247 10*3/uL (130-400); RED BLOOD COUNT 4.86 10*6/uL (4.50-5.90); RED CELL DISTRI WIDTH 13.2 % (0-14.5); WHITE BLOOD COUNT 19.7 10*3/uL (4.8-10.8)
[2017-03-09 07:08] LABS: CHLORIDE 106 mmol/L (98-107); POTASSIUM 4.4 mmol/L (3.5-5.1); SODIUM 142 mmol/L (136-145)
[2017-03-09 07:14] LABS: ALBUMIN 3.2 gm/dl (3.1-4.5); ALKALINE PHOSPHATASE 63 U/L (45-117); BILIRUBIN, TOTAL 0.2 mg/dl (0.2-1.0); BUN 18 mg/dl (7-24); CARBON DIOXIDE 27 mmol/L (21-32); EST GLOM FILT AFRICAN AMERICAN > 60 ml/min; GLUCOSE 115 mg/dL (65-99); SGOT/AST 24 IU/L (3-35); SGPT/ALT 120 U/L (12-78); TOTAL PROTEIN 6.6 gm/dL (6.4-8.2)
[2017-03-09 07:18] LABS: LYMPHOCYTE # 3.7 10*3/uL (1.3-4.4); METAMYELOCYTES 1 % (0-0); MONOCYTE # 0.4 10*3/uL (0.1-1.0); NEUTROPHIL # 15.4 10*3/uL (2.3-7.9); NEUTROPHILS 78 % (47-73); PLATELET SUFFICIENCY NORMAL (NORMAL); TOTAL CELLS COUNTED 100 #CELLS
[2017-03-09 11:38] LABS: VITAMIN D, 25-HYDROXY 28.3 ng/mL (30-100)
[2017-03-10] VITALS: BP 144/98
[2017-03-10 08:00] VITALS: BP 132/88
[2017-03-10] MEDS ORDERED: PREDNISONE50 MG PO (10:45)
[2017-03-10] MEDS ORDERED: ZITHROMAX250 MG PO (10:48)
[2017-03-10 15:10] LABS: ACID FAST SPEC PROCESSING Concentration (.)
== END 2017-03-10 11:15 | disposition home or self-care (01) | DRG 166 ==
LOC: ED 13:38 → EDHOLD 14:55 → 5E 14:55
PROVIDERS: Emergency Medicine; Hospitalist; Internal Medicine Critical Care Medicine; Internal Medicine Hospice and Palliative Medicine
PROC: 0B9F8ZX Drainage of Right Lower Lung Lobe, Via Natural or Artificial Opening Endoscopic, Diagnostic (ICD-10-PCS; principal; 2017-03-09)
DX: J44.0 Chronic obstructive pulmonary disease with (acute) lower respiratory infection (principal); J15.6 Pneumonia due to other Gram-negative bacteria; G62.9 Polyneuropathy, unspecified; J45.21 Mild intermittent asthma with (acute) exacerbation; J98.6 Disorders of diaphragm; J98.11 Atelectasis; J44.1 Chronic obstructive pulmonary disease with (acute) exacerbation; I10 Essential (primary) hypertension; F17.200 Nicotine dependence, unspecified, uncomplicated; Z71.6 Tobacco abuse counseling; M79.7 Fibromyalgia; M54.5 Low back pain; D72.825 Bandemia; E03.9 Hypothyroidism, unspecified; K21.9 Gastro-esophageal reflux disease without esophagitis; F41.1 Generalized anxiety disorder; E78.00 Pure hypercholesterolemia, unspecified; Z82.49 Family history of ischemic heart disease and other diseases of the circulatory system

== ENCOUNTER → 2017-03-11 | Outpatient (CLI) | payer BC ==
[~2017-03-11] MED LIST changes: +ACETAMINOPHEN &1 TA1 PO; +PREDNISONE50 MG PO; +ZITHROMAX250 MG PO
--- NOTE | ~2017-03-11 | PF ---
[place], [place] PULMONARY FUNCTION TEST [id number] UNIT #: [id number] ROOM: DOCTOR: SEAN RICHTER MD,ANA BIRTHDATE: [birth year] DOS: 03/11/2017 The test was ordered from office. HISTORY: The patient noted as a 56-year-old male, height of 69 inches, weight of 187 pounds, BMI 27.6. The testing was done for assessment of dyspnea with exertion, of nonproductive cough, frequent wheezing. Chronic tobacco use, 1.5 pack of cigarettes per day. SPIROMETRY: The FVC was recorded at 3.06 liters at 65% of the predicted value. It was noted moderately decreased without significant changes post-bronchodilator test. The FEV1 was recorded 2.41 liters at 67% predicted value, mildly decreased with partial 11% improvement occurred postbronchodilator test. Ratio of FEV1/FVC was recorded 79%. The lung volumes, thoracic gas volume recorded 84%, residual volume 94%, total lung capacity 74% and RV/TLC ratio 127%. The lung volume shows mild restrictive lung disease. The patient with mild air trapping. The patient's lung diffusion recorded 67%, mildly decreased without correction of hemoglobin and carbon monoxide values. The patient's airway resistance, passive conductance was noted normal; however, partial improvement occurred postbronchodilator test. FINAL IMPRESSION: Evidence of restrictive and obstructive lung disease for this patient was noted. The obstructive lung disease has been noted with partial reversibility consistent with a diagnosis of bronchial asthma. The restrictive component is most likely related to the patient has known history of right diaphragmatic paralysis. ANA ESTRADA MD CM:PFREPORT:PULMONARY FUNCTION TEST [id number] ANA RICHTER MD
== END | disposition home or self-care (01) ==
LOC: CP 10:38
DX: J45.909 Unspecified asthma, uncomplicated (principal)

== ENCOUNTER → 2017-03-18 | Outpatient (CLI) | payer BC | END | disposition home or self-care (01) | LOC: LAB 00:57 | DX: R53.83 Other fatigue (principal) ==

== ENCOUNTER → 2017-06-08 | Outpatient (CLI) | payer OTHER ==
[2017-06-08 09:26] LABS: BASO # 0.1 10*3/uL (0.0-0.1); BASO % 1.1 % (0.0-1.0); EOS # 0.2 10*3/uL (0.0-0.4); EOS % 2.4 % (1.0-4.0); HEMATOCRIT 45.8 % (42.0-52.0); HEMOGLOBIN 15.7 g/dl (14.0-18.0); LYMPH # 3.8 10*3/uL (1.3-4.4); LYMPH % 50.4 % (27.0-41.0); MEAN CELL VOLUME 90.2 fl (80.0-94.0); MEAN CORPUSCULAR HGB 30.9 pg (27.0-31.0); MEAN CORPUSCULAR HGB CONC 34.3 g/dl (33.0-37.0); MEAN PLATELET VOLUME 9.6 fl (9.6-12.3); MONO # 0.5 10*3/uL (0.1-1.0); MONO % 6.9 % (3.0-9.0); NEUT # 2.9 10*3/uL (2.3-7.9); NEUT % 38.9 % (47.0-73.0); PLATELET COUNT AUTOMATED 211 10*3/uL (130-400); RED BLOOD COUNT 5.08 10*6/uL (4.50-5.90); RED CELL DISTRI WIDTH 12.5 % (0-14.5); WHITE BLOOD COUNT 7.5 10*3/uL (4.8-10.8)
[2017-06-08 10:05] LABS: ALBUMIN 3.9 gm/dl (3.1-4.5); ALKALINE PHOSPHATASE 62 U/L (45-117); BILIRUBIN, TOTAL 0.7 mg/dl (0.2-1.0); BUN 11 mg/dl (7-24); CARBON DIOXIDE 28 mmol/L (21-32); CHLORIDE 105 mmol/L (98-107); CHOLESTEROL 274 mg/dL (<200); EST GLOM FILT AFRICAN AMERICAN > 60 ml/min; GLUCOSE 99 mg/dL (65-99); HDL CHOLESTEROL 48 mg/dl (40-60); LDL CHOLESTEROL 183 mg/dL (9-159); POTASSIUM 4.4 mmol/L (3.5-5.1); SGOT/AST 25 IU/L (3-35); SGPT/ALT 39 U/L (12-78); SODIUM 139 mmol/L (136-145); TOTAL PROTEIN 7.6 gm/dL (6.4-8.2); TRIGLYCERIDES 215 mg/dl (<150); VLDL CHOLESTEROL 43 mg/dL (6-40)
[2017-06-08 11:14] LABS: FOLIC ACID 15.61 ng/mL (>5.38); VITAMIN D, 25-HYDROXY 24.4 ng/mL (30-100)
== END | disposition home or self-care (01) ==
LOC: LAB 09:13
PROVIDERS: Internal Medicine
DX: Z12.5 Encounter for screening for malignant neoplasm of prostate (principal); Z13.1 Encounter for screening for diabetes mellitus; Z13.21 Encounter for screening for nutritional disorder; Z13.220 Encounter for screening for lipoid disorders; E55.9 Vitamin D deficiency, unspecified; R53.81 Other malaise; E78.00 Pure hypercholesterolemia, unspecified

== ENCOUNTER 2017-07-08 23:54 | Emergency (ER) | payer OTHER ==
[~2017-07-08] VITALS: Ht 175.2 cm; Wt 88.5 kg
[2017-07-09] MEDS ORDERED: CEFADROXIL500 M1 PO (00:15)
== END 2017-07-09 00:59 | disposition home or self-care (01) ==
LOC: ED 23:54
DX: S61.012A Laceration without foreign body of left thumb without damage to nail, initial encounter (principal); Z79.82 Long term (current) use of aspirin; Z79.899 Other long term (current) drug therapy; F17.210 Nicotine dependence, cigarettes, uncomplicated; W27.0XXA Contact with workbench tool, initial encounter; Y93.89 Activity, other specified; Y92.89 Other specified places as the place of occurrence of the external cause; Y99.8 Other external cause status

== ENCOUNTER → 2018-02-26 | Day surgery (SDC) | payer OTHER ==
[~2018-02-26] VITALS: Ht 175.2 cm; Wt 88.5 kg
[~2018-02-26] MED LIST changes: +CEFADROXIL500 M1 PO; +SINGULAIR10 M1 PO
--- NOTE | ~2018-02-26 | PROC NOTE ---
[place], [place] PROCEDURE NOTE NAME: GARY RIVERS [facility] #: [id number] UNIT #: [id number] ROOM: DOCTOR: SUNDEEP ESQUEDA MD BIRTHDATE: [birth year] DOS: 02/26/2018 PREOPERATIVE DIAGNOSES: Gastritis, constipation. POSTOPERATIVE DIAGNOSES: Gastritis, hiatal hernia, diverticulosis. PROCEDURE: EGD with antral biopsies x 2, colonoscopy. ENDOSCOPIST: Sundeep Esqueda MD TRUCK OPERATOR: MIC. ANESTHESIA: MAC. INDICATIONS: This is a 57-year-old gentleman with a history of gastritis and continued epigastric pain as well as constipation, who is here for the above-mentioned procedure. The procedure and its complications were explained to the patient in detail. Complications that were discussed included but were not limited to bleeding, infection, colon perforation, stomach perforation, prolonged pain. He agreed to proceed. DESCRIPTION OF PROCEDURE: After identifying the patient, the patient was brought to the endoscopy suite and placed in left lateral position. It was decided to perform the EGD first. A time-out procedure was called and IV sedation was administered by the anesthesia team. A bite block was placed. An adult gastroscope was introduced into the mouth and advanced sequentially into the pharynx, esophagus, stomach and the first 2 parts of the duodenum. There was found to be gastritis, which was nonspecific in nature and 2 antral biopsies were taken and sent for histopathological diagnosis. The scope was retroflexed and there were no obvious ulceration or bleeding that could be seen in the rest of the stomach. Upon withdrawal of the scope, there was found to be a small sliding hiatal hernia, but there was no esophagitis. The scope was withdrawn and the patient was then prepped for a colonoscopy. A digital rectal exam was performed, which was within normal limits. An adult colonoscope was now introduced into the anal canal and advanced sequentially into to the rectum, sigmoid colon, descending colon, transverse colon, ascending colon, up to the cecum. There was found to be extensive sigmoid diverticulosis, but otherwise the colonic mucosa was within normal limits. Upon reaching the cecum, the scope was withdrawn. Total withdrawal time was approximately 7 minutes. There were also some mild internal hemorrhoids that were visualized upon withdrawal. The patient was then brought back to the recovery room in a stable fashion. Based on these findings, the patient was recommended to have another colonoscopy in 10 years or sooner should he have any new symptoms. These findings were discussed with the patient's and I will talk to the patient himself when I see him in the office in 2 weeks. [place], [place] PROCEDURE NOTE NAME: GARY RIVERS UNIT #: [id number] ROOM: DOCTOR: SUNDEEP ESQUEDA MD BIRTHDATE: [birth year] Sundeep Esqueda MD CM:PROCNOTE:PROCEDURE NOTE 1127 [id number] SUNDEEP ESQUEDA MD
[2018-02-26 08:38] LABS: HEMATOCRIT 48.4 % (42.0-52.0); HEMOGLOBIN 16.4 g/dl (14.0-18.0); MEAN CELL VOLUME 88.8 fl (80.0-94.0); MEAN CORPUSCULAR HGB 30.1 pg (27.0-31.0); MEAN CORPUSCULAR HGB CONC 33.9 g/dl (33.0-37.0); MEAN PLATELET VOLUME 9.6 fl (9.6-12.3); RED BLOOD COUNT 5.45 10*6/uL (4.50-5.90); WHITE BLOOD COUNT 8.1 10*3/uL (4.8-10.8)
[2018-02-26 09:10] LABS: ALBUMIN 4.1 gm/dl (3.1-4.5); ALKALINE PHOSPHATASE 65 U/L (45-117); BUN 10 mg/dl (7-24); CHLORIDE 102 mmol/L (98-107); CHOLESTEROL 239 mg/dL (<200); CREATININE 1.05 mg/dL (0.70-1.30); HDL CHOLESTEROL 39 mg/dl (40-60); LDL CHOLESTEROL 166 mg/dL (9-159); POTASSIUM 3.8 mmol/L (3.5-5.1); SGOT/AST 31 IU/L (3-35); SGPT/ALT 45 U/L (12-78); SODIUM 140 mmol/L (136-145); TRIGLYCERIDES 170 mg/dl (<150); VLDL CHOLESTEROL 34 mg/dL (6-40)
[2018-02-26 09:43] VITALS: BP 127/90
[2018-02-26 10:24] LABS: VITAMIN D, 25-HYDROXY 21.2 ng/mL (30-100)
[2018-02-26 11:20] VITALS: BP 119/75
[2018-02-26 11:35] VITALS: BP 113/82
[2018-02-26 11:50] VITALS: BP 118/82
== END | disposition home or self-care (01) ==
LOC: SDC 02-24 09:30
PROVIDERS: Surgery
DX: K29.50 Unspecified chronic gastritis without bleeding (principal); K44.9 Diaphragmatic hernia without obstruction or gangrene; K57.30 Diverticulosis of large intestine without perforation or abscess without bleeding; K64.8 Other hemorrhoids; F41.9 Anxiety disorder, unspecified; F32.9 Major depressive disorder, single episode, unspecified; E07.89 Other specified disorders of thyroid; K21.9 Gastro-esophageal reflux disease without esophagitis; J44.9 Chronic obstructive pulmonary disease, unspecified; F17.210 Nicotine dependence, cigarettes, uncomplicated; E78.00 Pure hypercholesterolemia, unspecified; Z82.49 Family history of ischemic heart disease and other diseases of the circulatory system; Z79.899 Other long term (current) drug therapy

== ENCOUNTER → 2018-08-11 | Outpatient (CLI) | payer OTHER ==
--- NOTE | ~2018-08-11 | PF ---
[place], [place] PULMONARY FUNCTION TEST [id number] UNIT #: [id number] ROOM: DOCTOR: SEAN RICHTER MD,ANA BIRTHDATE: [birth year] DOS: 08/11/2018 This test was ordered from my office. HISTORY OF PRESENT ILLNESS: The patient is a 58-year-old male, height of 6 inch, weight 150 pounds. He has pulmonary function testing done for assessment of COPD and bronchial asthma. Past tobacco use was noted as 1.5 pack of cigarettes per day for 40 years that was discontinued 1 year ago. The patient reported symptoms of shortness of breath with exertion. SPIROMETRY: The FVC was recorded as 2.72 liters as 59% predicted value, the FEV1 of 2.29 liters at 64% predicted value, ratio of FEV1/FVC recorded 78%. No postbronchodilator changes noted. Flow volume assessment shows evidence of obstructive airway pattern. Lung volumes, thoracic gas volume recorded 75%, residual volume 111%, total lung capacity 74%. RV/TLC ratio 148%. Lung volume shows moderate restrictive component and evidence of mild air trapping. The patient's lung diffusion was recorded at 61%, mild to moderately decreased without correction of carbon monoxide or hemoglobin values. The patient's airway resistance and passive conductance were noted normal. FINAL IMPRESSION: Current test is suggestive of findings of mild restrictive lung disease as well as obstructive lung disease combination. Clinical correlation was advised. ANA ESTRADA MD CM:PFREPORT:PULMONARY FUNCTION TEST 5 ANA RICHTER MD
== END | disposition home or self-care (01) ==
LOC: CP 08:28
DX: J45.40 Moderate persistent asthma, uncomplicated (principal)

== ENCOUNTER → 2018-11-17 | Outpatient (CLI) | payer OTHER | END | disposition home or self-care (01) | LOC: US 13:16 | DX: M79.604 Pain in right leg (principal); M79.605 Pain in left leg; R20.0 Anesthesia of skin ==

== ENCOUNTER → 2019-03-04 | Outpatient (CLI) | payer OTHER | END | disposition home or self-care (01) | LOC: MRI 00:31 | DX: M48.061 Spinal stenosis, lumbar region without neurogenic claudication (principal); M51.36 Other intervertebral disc degeneration, lumbar region; M12.88 Other specific arthropathies, not elsewhere classified, other specified site; M51.26 Other intervertebral disc displacement, lumbar region ==

== ENCOUNTER → 2019-03-27 | Outpatient (CLI) | payer OTHER ==
[2019-03-27 13:52] LABS: HEMATOCRIT 50.8 % (42.0-52.0); HEMOGLOBIN 17.1 g/dl (14.0-18.0); MEAN CELL VOLUME 91.2 fl (80.0-94.0); MEAN CORPUSCULAR HGB 30.7 pg (27.0-31.0); MEAN CORPUSCULAR HGB CONC 33.7 g/dl (33.0-37.0); MEAN PLATELET VOLUME 9.8 fl (9.6-12.3); RED BLOOD COUNT 5.57 10*6/uL (4.50-5.90); RED CELL DISTRI WIDTH 12.6 % (0-14.5); WHITE BLOOD COUNT 8.3 10*3/uL (4.8-10.8)
[2019-03-27 14:19] LABS: ALBUMIN 3.8 gm/dl (3.1-4.5); ALKALINE PHOSPHATASE 71 U/L (45-117); BUN 10 mg/dl (7-24); CHLORIDE 104 mmol/L (98-107); CHOLESTEROL 271 mg/dL (<200); CREATININE 1.02 mg/dL (0.70-1.30); HDL CHOLESTEROL 41 mg/dl (40-60); LDL CHOLESTEROL 180 mg/dL (9-159); POTASSIUM 4.5 mmol/L (3.5-5.1); SGOT/AST 20 IU/L (3-35); SGPT/ALT 30 U/L (12-78); SODIUM 141 mmol/L (136-145); TOTAL PROTEIN 7.6 gm/dL (6.4-8.2); TRIGLYCERIDES 250 mg/dl (<150); VLDL CHOLESTEROL 50 mg/dL (6-40)
[2019-03-27 14:52] LABS: VITAMIN D, 25-HYDROXY 21.8 ng/mL (30-100)
== END | disposition home or self-care (01) ==
LOC: LAB 13:26
PROVIDERS: Physician Assistant
DX: Z12.5 Encounter for screening for malignant neoplasm of prostate (principal); M79.604 Pain in right leg; M79.7 Fibromyalgia; M79.605 Pain in left leg; M54.5 Low back pain; J44.9 Chronic obstructive pulmonary disease, unspecified

== ENCOUNTER → 2019-07-29 | Outpatient (CLI) | payer OTHER ==
[2019-07-29 11:48] LABS: ALBUMIN 3.5 gm/dl (3.1-4.5); ALKALINE PHOSPHATASE 74 U/L (45-117); BUN 15 mg/dl (7-24); CHLORIDE 109 mmol/L (98-107); CHOLESTEROL 115 mg/dL (<200); CREATININE 0.87 mg/dL (0.70-1.30); HDL CHOLESTEROL 42 mg/dl (40-60); LDL CHOLESTEROL 43 mg/dL (9-159); POTASSIUM 3.9 mmol/L (3.5-5.1); SGOT/AST 23 IU/L (3-35); SGPT/ALT 30 U/L (12-78); SODIUM 141 mmol/L (136-145); TOTAL PROTEIN 6.8 gm/dL (6.4-8.2); TRIGLYCERIDES 148 mg/dl (<150); VLDL CHOLESTEROL 30 mg/dL (6-40)
== END | disposition home or self-care (01) ==
LOC: LAB 11:33
PROVIDERS: Physician Assistant
DX: J44.9 Chronic obstructive pulmonary disease, unspecified (principal); M79.7 Fibromyalgia; J45.40 Moderate persistent asthma, uncomplicated; M54.5 Low back pain

== ENCOUNTER → 2019-10-26 | Outpatient (CLI) | payer OTHER | END | disposition home or self-care (01) | LOC: US 10-10 13:00 | DX: N43.3 Hydrocele, unspecified (principal) ==

== ENCOUNTER 2020-04-13 00:43 | Emergency (ER) | payer OTHER ==
[~2020-04-13] VITALS: Ht 175.2 cm; Wt 90.7 kg
== END 2020-04-13 01:30 | disposition home or self-care (01) ==
LOC: ED 00:43
DX: T50.905A Adverse effect of unspecified drugs, medicaments and biological substances, initial encounter (principal); F41.9 Anxiety disorder, unspecified; J44.9 Chronic obstructive pulmonary disease, unspecified; K21.9 Gastro-esophageal reflux disease without esophagitis; E03.9 Hypothyroidism, unspecified; F32.9 Major depressive disorder, single episode, unspecified; E78.00 Pure hypercholesterolemia, unspecified; I10 Essential (primary) hypertension; Z79.899 Other long term (current) drug therapy; Y92.89 Other specified places as the place of occurrence of the external cause

== ENCOUNTER → 2020-11-20 | Outpatient (CLI) | payer OTHER ==
[2020-11-20 05:29] LABS: ALBUMIN 3.6 gm/dl (3.1-4.5); ALKALINE PHOSPHATASE 64 U/L (45-117); BUN 16 mg/dl (7-24); CHLORIDE 108 mmol/L (98-107); CHOLESTEROL 109 mg/dL (<200); CREATININE 0.95 mg/dL (0.70-1.30); HDL CHOLESTEROL 41 mg/dl (40-60); LDL CHOLESTEROL 41 mg/dL (9-159); POTASSIUM 3.9 mmol/L (3.5-5.1); SGOT/AST 19 IU/L (3-35); SGPT/ALT 29 U/L (12-78); SODIUM 141 mmol/L (136-145); TOTAL PROTEIN 6.8 gm/dL (6.4-8.2); TRIGLYCERIDES 133 mg/dl (<150); VLDL CHOLESTEROL 27 mg/dL (6-40)
[2020-11-20 06:02] LABS: HEMATOCRIT 44.8 % (42.0-52.0); MEAN CORPUSCULAR HGB 30.1 pg (27.0-31.0); MEAN CORPUSCULAR HGB CONC 33.5 g/dl (33.0-37.0); MEAN PLATELET VOLUME 9.7 fl (9.6-12.3); RED BLOOD COUNT 4.98 10*6/uL (4.50-5.90); RED CELL DISTRI WIDTH 12.7 % (0-14.5); WHITE BLOOD COUNT 8.3 10*3/uL (4.8-10.8)
== END | disposition home or self-care (01) ==
LOC: LAB 00:21
PROVIDERS: ATTEND Physician Assistant
DX: Z12.5 Encounter for screening for malignant neoplasm of prostate (principal); J44.9 Chronic obstructive pulmonary disease, unspecified; M79.7 Fibromyalgia; J45.40 Moderate persistent asthma, uncomplicated; M54.5 Low back pain; Z91.09 Other allergy status, other than to drugs and biological substances

== ENCOUNTER 2021-02-26 12:03 | Emergency (ER) | payer OTHER ==
[~2021-02-26] VITALS: Ht 177.8 cm; Wt 90.7 kg
[2021-02-26 12:48] LABS: BASO # 0.1 10*3/uL (0.0-0.1); EOS # 0.3 10*3/uL (0.0-0.4); EOS % 4.5 % (1.0-4.0); HEMATOCRIT 45.5 % (42.0-52.0); LYMPH # 1.8 10*3/uL (1.3-4.4); LYMPH % 26.5 % (27.0-41.0); MEAN CELL VOLUME 90.8 fl (80.0-94.0); MEAN CORPUSCULAR HGB 30.5 pg (27.0-31.0); MEAN CORPUSCULAR HGB CONC 33.6 g/dl (33.0-37.0); MEAN PLATELET VOLUME 9.4 fl (9.6-12.3); MONO # 0.7 10*3/uL (0.1-1.0); MONO % 9.4 % (3.0-9.0); NEUT # 4.1 10*3/uL (2.3-7.9); NEUT % 58.3 % (47.0-73.0); PLATELET COUNT AUTOMATED 179 10*3/uL (130-400); RED BLOOD COUNT 5.01 10*6/uL (4.50-5.90); RED CELL DISTRI WIDTH 13.1 % (0-14.5)
[2021-02-26 13:05] LABS: ALBUMIN 3.5 gm/dl (3.1-4.5); ALKALINE PHOSPHATASE 71 U/L (45-117); BUN 12 mg/dl (7-24); CHLORIDE 106 mmol/L (98-107); CREATININE 0.95 mg/dL (0.70-1.30); POTASSIUM 4.8 mmol/L (3.5-5.1); SGOT/AST 17 IU/L (3-35); SGPT/ALT 31 U/L (12-78); SODIUM 139 mmol/L (136-145); TOTAL PROTEIN 7.2 gm/dL (6.4-8.2)
[2021-02-26 13:06] LABS: TROPONIN I < 0.015 ng/ml (<0.045)
== END 2021-02-26 17:33 | disposition home or self-care (01) ==
LOC: ED 12:03
PROVIDERS: Emergency Medicine
DX: R07.89 Other chest pain (principal); T59.91XA Toxic effect of unspecified gases, fumes and vapors, accidental (unintentional), initial encounter; F17.210 Nicotine dependence, cigarettes, uncomplicated; Z79.899 Other long term (current) drug therapy; Y92.89 Other specified places as the place of occurrence of the external cause

== ENCOUNTER → 2021-05-20 | Day surgery (SDC) | payer OTHER ==
[~2021-05-20] VITALS: Ht 177.8 cm; Wt 90.7 kg
[~2021-05-20] MED LIST changes: +CARAFATE1 G1 PO
[2021-05-20 07:07] VITALS: BP 130/86
[2021-05-20 08:02] VITALS: BP 106/68
[2021-05-20 08:04] VITALS: BP 106/68
[2021-05-20 08:19] VITALS: BP 118/83
[2021-05-20 08:34] VITALS: BP 114/75
== END | disposition home or self-care (01) ==
LOC: SDC 05-13 08:45
PROVIDERS: ATTEND Surgery
DX: Z12.11 Encounter for screening for malignant neoplasm of colon (principal); K57.30 Diverticulosis of large intestine without perforation or abscess without bleeding; K64.9 Unspecified hemorrhoids; K29.50 Unspecified chronic gastritis without bleeding; F41.9 Anxiety disorder, unspecified; F32.9 Major depressive disorder, single episode, unspecified; J44.9 Chronic obstructive pulmonary disease, unspecified; M79.7 Fibromyalgia; K21.9 Gastro-esophageal reflux disease without esophagitis; F17.210 Nicotine dependence, cigarettes, uncomplicated; Z20.822 Contact with and (suspected) exposure to COVID-19; Z79.899 Other long term (current) drug therapy

== ENCOUNTER 2021-12-09 11:06 | Emergency (ER) | payer OTHER ==
[~2021-12-09] VITALS: Ht 175.2 cm; Wt 83.9 kg
[2021-12-09 12:13] LABS: BASO # 0.1 10*3/uL (0.0-0.1); BASO % 0.5 % (0.0-1.0); EOS # 0.1 10*3/uL (0.0-0.4); EOS % 0.7 % (1.0-4.0); HEMATOCRIT 45.8 % (42.0-52.0); LYMPH # 2.5 10*3/uL (1.3-4.4); LYMPH % 27.4 % (27.0-41.0); MEAN CELL VOLUME 88.9 fl (80.0-94.0); MEAN CORPUSCULAR HGB 30.3 pg (27.0-31.0); MEAN CORPUSCULAR HGB CONC 34.1 g/dl (33.0-37.0); MEAN PLATELET VOLUME 9.3 fl (9.6-12.3); MONO # 0.8 10*3/uL (0.1-1.0); MONO % 8.6 % (3.0-9.0); NEUT # 5.8 10*3/uL (2.3-7.9); NEUT % 62.5 % (47.0-73.0); PLATELET COUNT AUTOMATED 339 10*3/uL (130-400); RED BLOOD COUNT 5.15 10*6/uL (4.50-5.90); RED CELL DISTRI WIDTH 11.8 % (0-14.5); WHITE BLOOD COUNT 9.2 10*3/uL (4.8-10.8)
[2021-12-09 12:27] LABS: ALBUMIN 3.3 gm/dl (3.1-4.5); ALKALINE PHOSPHATASE 73 U/L (45-117); BUN 16 mg/dl (7-24); CHLORIDE 108 mmol/L (98-107); CREATININE 1.09 mg/dL (0.70-1.30); POTASSIUM 4.3 mmol/L (3.5-5.1); SGOT/AST 45 IU/L (3-35); SGPT/ALT 56 U/L (12-78); SODIUM 141 mmol/L (136-145); TOTAL PROTEIN 7.8 gm/dL (6.4-8.2)
[2021-12-09] MEDS ORDERED: ZITHROMAX250 MG PO (14:22)
[2021-12-09] MEDS ORDERED: ZOFRAN4 MG PO (14:22)
== END 2021-12-09 14:33 | disposition home or self-care (01) ==
LOC: ED 11:06
PROVIDERS: Physician Assistant
DX: J18.9 Pneumonia, unspecified organism (principal); F17.210 Nicotine dependence, cigarettes, uncomplicated; Z79.899 Other long term (current) drug therapy; Z98.890 Other specified postprocedural states

== ENCOUNTER → 2022-03-14 | Outpatient (CLI) | payer OTHER | END | disposition home or self-care (01) | LOC: CT 16:00 | PROVIDERS: ATTEND Specialist | DX: J32.9 Chronic sinusitis, unspecified (principal); J34.2 Deviated nasal septum; R23.8 Other skin changes ==

== ENCOUNTER → 2022-04-25 | Outpatient (CLI) | payer OTHER ==
[2022-05-02 04:06] LABS: ALTERNARIA ALTERNATA, IGE <0.10 kU/L (Class 0); AMERICAN ELM, IGE <0.10 kU/L (Class 0); ASPERGILLUS FUMIGATU, IGE <0.10 kU/L (Class 0); BERMUDA GRASS, IGE <0.10 kU/L (Class 0); BIRCH, COMMON SILVER IGE <0.10 kU/L (Class 0); CLADOSPORIUM HERBARU, IGE <0.10 kU/L (Class 0); D FARINAE MITE <0.10 kU/L (Class 0); D PTERONYSSINUS <0.10 kU/L (Class 0); DOG DANDER, IGE <0.10 kU/L (Class 0); MAPLE LEAF SYCAMORE, IGE <0.10 kU/L (Class 0); MAPLE/BOX ELDER, IGE <0.10 kU/L (Class 0); MOUSE URINE IGE <0.10 kU/L (Class 0); PENICILLIUM CHRYSOGENUM, IGE <0.10 kU/L (Class 0); ROUGH PIGWEED, IGE <0.10 kU/L (Class 0); SHEEP SORREL (DOCK), IGE <0.10 kU/L (Class 0); SHORT RAGWEED, IGE <0.10 kU/L (Class 0); TIMOTHY, IGE <0.10 kU/L (Class 0); WALNUT TREE, IGE <0.10 kU/L (Class 0); WHITE ASH, IGE <0.10 kU/L (Class 0); WHITE MULBERRY, IGE <0.10 kU/L (Class 0); WHITE OAK, IGE <0.10 kU/L (Class 0)
[2022-05-02 05:06] LABS: CODFISH, IGE <0.10 kU/L (Class 0); CORN, IGE <0.10 kU/L (Class 0); EGG WHITE, IGE <0.10 kU/L (Class 0); MILK (COW), IGE <0.10 kU/L (Class 0); PEANUT, IGE <0.10 kU/L (Class 0); SOYBEAN, IGE <0.10 kU/L (Class 0); WHEAT, IGE <0.10 kU/L (Class 0)
== END | disposition home or self-care (01) ==
LOC: LAB 11:50
PROVIDERS: ATTEND Specialist
DX: R53.82 Chronic fatigue, unspecified (principal); J30.9 Allergic rhinitis, unspecified

== ENCOUNTER → 2022-06-03 | Day surgery (SDC) | payer OTHER ==
[2022-05-30 14:24] VITALS: BP 105/71
[2022-05-30 15:18] LABS: BASO # 0.1 10*3/uL (0.0-0.1); EOS # 0.2 10*3/uL (0.0-0.4); EOS % 2.5 % (1.0-4.0); HEMATOCRIT 45.8 % (42.0-52.0); LYMPH % 38.1 % (27.0-41.0); MEAN CELL VOLUME 90.2 fl (80.0-94.0); MEAN CORPUSCULAR HGB 30.7 pg (27.0-31.0); MEAN CORPUSCULAR HGB CONC 34.1 g/dl (33.0-37.0); MEAN PLATELET VOLUME 9.6 fl (9.6-12.3); MONO # 0.9 10*3/uL (0.1-1.0); MONO % 11.5 % (3.0-9.0); NEUT # 3.6 10*3/uL (2.3-7.9); NEUT % 46.6 % (47.0-73.0); PLATELET COUNT AUTOMATED 182 10*3/uL (130-400); RED BLOOD COUNT 5.08 10*6/uL (4.50-5.90); RED CELL DISTRI WIDTH 12.5 % (0-14.5); WHITE BLOOD COUNT 7.7 10*3/uL (4.8-10.8)
[2022-05-30 15:35] LABS: BUN 16 mg/dl (7-24); CHLORIDE 108 mmol/L (98-107); CREATININE 1.05 mg/dL (0.70-1.30); POTASSIUM 4.3 mmol/L (3.5-5.1); SODIUM 142 mmol/L (136-145)
[~2022-06-03] VITALS: Ht 177.8 cm; Wt 90.7 kg
[~2022-06-03] MED LIST changes: +BENADRYL ALLERG25 M5 PO; +PERCOCET 10-321 EACH PO
[2022-06-03 09:19] VITALS: BP 122/78
[2022-06-03 11:35] VITALS: BP 159/94
[2022-06-03 11:50] VITALS: BP 128/78
[2022-06-03 12:07] VITALS: BP 146/94
[2022-06-03 12:20] VITALS: BP 147/78
[2022-06-03 12:37] VITALS: BP 138/82
== END | disposition home or self-care (01) ==
LOC: SDC 05-30 14:00
PROVIDERS: ATTEND Specialist
DX: J34.2 Deviated nasal septum (principal); G47.33 Obstructive sleep apnea (adult) (pediatric); J34.3 Hypertrophy of nasal turbinates; J34.89 Other specified disorders of nose and nasal sinuses; Z99.89 Dependence on other enabling machines and devices; K21.9 Gastro-esophageal reflux disease without esophagitis; M79.7 Fibromyalgia; J44.9 Chronic obstructive pulmonary disease, unspecified; Z87.891 Personal history of nicotine dependence; Z79.899 Other long term (current) drug therapy

== ENCOUNTER → 2022-07-28 | Outpatient (CLI) | payer OTHER | END | disposition home or self-care (01) | LOC: ORTHO 02:49 | PROVIDERS: ATTEND Orthopaedic Surgery | DX: M19.012 Primary osteoarthritis, left shoulder (principal) ==

== ENCOUNTER → 2022-10-20 | Day surgery (SDC) | payer OTHER ==
[2022-10-17 13:29] VITALS: BP 138/86
[2022-10-20] VITALS (9 sets, daily range): BP systolic 134–152; BP diastolic 81–98
[~2022-10-20] VITALS: Ht 177.8 cm; Wt 88.9 kg
== END | disposition home or self-care (01) ==
LOC: SDC 10-17 13:15
PROVIDERS: ATTEND Specialist
DX: J34.3 Hypertrophy of nasal turbinates (principal); J45.909 Unspecified asthma, uncomplicated; E78.00 Pure hypercholesterolemia, unspecified; K21.9 Gastro-esophageal reflux disease without esophagitis; E03.9 Hypothyroidism, unspecified; G47.33 Obstructive sleep apnea (adult) (pediatric); Z99.89 Dependence on other enabling machines and devices; Z98.890 Other specified postprocedural states

== ENCOUNTER → 2023-01-27 | Outpatient (CLI) | payer OTHER | END | disposition home or self-care (01) | LOC: CT 10:34 | PROVIDERS: ATTEND Physician Assistant | DX: J43.8 Other emphysema (principal); I25.10 Atherosclerotic heart disease of native coronary artery without angina pectoris ==

== ENCOUNTER → 2023-02-19 | Outpatient (CLI) | payer OTHER ==
[2023-02-19 14:17] LABS: BASO # 0.1 10*3/uL (0.0-0.1); EOS # 0.1 10*3/uL (0.0-0.4); EOS % 1.7 % (1.0-4.0); HEMATOCRIT 49.2 % (42.0-52.0); LYMPH # 2.4 10*3/uL (1.3-4.4); LYMPH % 33.6 % (27.0-41.0); MEAN CELL VOLUME 88.3 fl (80.0-94.0); MEAN CORPUSCULAR HGB 29.8 pg (27.0-31.0); MEAN CORPUSCULAR HGB CONC 33.7 g/dl (33.0-37.0); MEAN PLATELET VOLUME 9.5 fl (9.6-12.3); MONO # 0.6 10*3/uL (0.1-1.0); MONO % 8.6 % (3.0-9.0); NEUT % 54.8 % (47.0-73.0); PLATELET COUNT AUTOMATED 245 10*3/uL (130-400); RED BLOOD COUNT 5.57 10*6/uL (4.50-5.90); RED CELL DISTRI WIDTH 12.9 % (0-14.5); WHITE BLOOD COUNT 7.2 10*3/uL (4.8-10.8)
[2023-02-19 14:37] LABS: ALKALINE PHOSPHATASE 74 U/L (46-116); BUN 17 mg/dl (9-23); CHLORIDE 106 mmol/L (98-107); CHOLESTEROL 240 mg/dL (<200); LDL CHOLESTEROL 158 mg/dL (9-159); POTASSIUM 4.6 mmol/L (3.4-5.1); SGPT/ALT 35 U/L (10-49); THYROID STIM HORMONE (HS) 0.401 uIU/ml (0.550-4.780); TOTAL PROTEIN 7.1 gm/dL (6.0-8.0); TRIGLYCERIDES 222 mg/dl (<150)
[2023-02-19 14:39] LABS: VITAMIN D, 25-HYDROXY 32.9 ng/mL (30-100)
[2023-02-20 07:07] LABS: TOTAL PROTEIN, SERUM 7.2 g/dL (6.0-8.5)
[2023-02-20 08:08] LABS: IMMUNOGLOBULIN G, QNT 1282 mg/dL (603-1613); IMMUNOGLOBULIN M, QNT 117 mg/dL (20-172)
[2023-02-20 13:06] LABS: SJOGREN ANTI-SS-A <0.2 AI (0.0-0.9); SJOREN AB, ANTI-SS-B <0.2 AI (0.0-0.9)
[2023-02-20 14:07] LABS: A/G RATIO 1.2 (0.7-1.7); ALBUMIN 3.9 g/dL (2.9-4.4); ALPHA-1-GLOBULIN 0.2 g/dL (0.0-0.4); ALPHA-2-GLOBULIN 0.8 g/dL (0.4-1.0); BETA GLOBULIN 1.1 g/dL (0.7-1.3); GAMMA GLOBULIN 1.2 g/dL (0.4-1.8); GLOBULIN, TOTAL 3.3 g/dL (2.2-3.9); M-SPIKE Not Observed g/dL (Not Observed)
[2023-02-20 15:07] LABS: ANGIOTENSIN-CONVERTING ENZYME 90 U/L (14-82)
[2023-02-21 11:07] LABS: ZINC, PLASMA 70 ug/dL (44-115)
[2023-02-23 16:07] LABS: IMMUNOGLOBULIN D, QNT 2.98 mg/dL (<14.11)
== END | disposition home or self-care (01) ==
LOC: LAB 00:48
PROVIDERS: ATTEND Psychiatry & Neurology Neurology
DX: G62.9 Polyneuropathy, unspecified (principal); Z79.899 Other long term (current) drug therapy

== ENCOUNTER → 2023-04-02 | Outpatient (CLI) | payer OTHER ==
[2023-04-08 14:08] LABS: ACHR BLOCKING AB 11 % (0-25)
== END | disposition home or self-care (01) ==
LOC: LAB 16:45
PROVIDERS: ATTEND Physician Assistant
DX: H53.2 Diplopia (principal); R53.82 Chronic fatigue, unspecified

== ENCOUNTER → 2023-07-07 | Outpatient (CLI) | payer OTHER | END | disposition home or self-care (01) | LOC: CT 00:10 | PROVIDERS: ATTEND Internal Medicine Critical Care Medicine | DX: J43.9 Emphysema, unspecified (principal); R91.1 Solitary pulmonary nodule; G25.81 Restless legs syndrome; G47.33 Obstructive sleep apnea (adult) (pediatric); J45.40 Moderate persistent asthma, uncomplicated; Z68.30 Body mass index [BMI] 30.0-30.9, adult; Z91.198 Patient's noncompliance with other medical treatment and regimen for other reason; Z87.891 Personal history of nicotine dependence ==

== ENCOUNTER → 2023-07-09 | Outpatient (CLI) | payer OTHER ==
[2023-07-12 13:06] LABS: CODFISH, IGE <0.10 kU/L (Class 0); EGG WHITE, IGE <0.10 kU/L (Class 0); MILK (COW), IGE <0.10 kU/L (Class 0); PEANUT, IGE <0.10 kU/L (Class 0); SOYBEAN, IGE <0.10 kU/L (Class 0); WHEAT, IGE <0.10 kU/L (Class 0)
[2023-07-12 17:06] LABS: ALTERNARIA ALTERNATA, IGE <0.10 kU/L (Class 0); AMERICAN ELM, IGE <0.10 kU/L (Class 0); ASPERGILLUS FUMIGATU, IGE <0.10 kU/L (Class 0); BERMUDA GRASS, IGE <0.10 kU/L (Class 0); BIRCH, COMMON SILVER IGE <0.10 kU/L (Class 0); CLADOSPORIUM HERBARU, IGE <0.10 kU/L (Class 0); D FARINAE MITE <0.10 kU/L (Class 0); D PTERONYSSINUS <0.10 kU/L (Class 0); DOG DANDER, IGE <0.10 kU/L (Class 0); MAPLE LEAF SYCAMORE, IGE <0.10 kU/L (Class 0); MAPLE/BOX ELDER, IGE <0.10 kU/L (Class 0); MOUSE URINE IGE <0.10 kU/L (Class 0); PENICILLIUM CHRYSOGENUM, IGE <0.10 kU/L (Class 0); ROUGH PIGWEED, IGE <0.10 kU/L (Class 0); SHEEP SORREL (DOCK), IGE <0.10 kU/L (Class 0); SHORT RAGWEED, IGE <0.10 kU/L (Class 0); TIMOTHY, IGE <0.10 kU/L (Class 0); WALNUT TREE, IGE <0.10 kU/L (Class 0); WHITE ASH, IGE <0.10 kU/L (Class 0); WHITE MULBERRY, IGE <0.10 kU/L (Class 0); WHITE OAK, IGE <0.10 kU/L (Class 0)
== END | disposition home or self-care (01) ==
LOC: LAB 09:45
PROVIDERS: ATTEND Specialist
DX: J30.1 Allergic rhinitis due to pollen (principal)

== ENCOUNTER → 2023-07-15 | Outpatient (CLI) | payer OTHER | END | disposition home or self-care (01) | LOC: CARD 00:57 | PROVIDERS: ATTEND Internal Medicine Cardiovascular Disease | DX: I25.10 Atherosclerotic heart disease of native coronary artery without angina pectoris (principal); E78.2 Mixed hyperlipidemia; Z78.9 Other specified health status ==

== ENCOUNTER → 2023-08-21 | Outpatient (CLI) | payer OTHER | END | disposition home or self-care (01) | LOC: RAD 11:29 | PROVIDERS: ATTEND Physician Assistant | DX: M47.816 Spondylosis without myelopathy or radiculopathy, lumbar region (principal); M48.061 Spinal stenosis, lumbar region without neurogenic claudication; G89.29 Other chronic pain; M54.50 Low back pain, unspecified; M79.7 Fibromyalgia; M25.78 Osteophyte, vertebrae ==

== ENCOUNTER → 2023-09-24 | Outpatient (CLI) | payer OTHER | END | disposition home or self-care (01) | LOC: US 00:59 | PROVIDERS: ATTEND Internal Medicine Cardiovascular Disease | DX: I82.812 Embolism and thrombosis of superficial veins of left lower extremity (principal); I83.892 Varicose veins of left lower extremity with other complications ==

== ENCOUNTER → 2024-03-08 | Outpatient (CLI) | payer OTHER | END | disposition home or self-care (01) | LOC: CT 00:39 | PROVIDERS: ATTEND Physician Assistant | DX: F17.211 Nicotine dependence, cigarettes, in remission (principal); R91.1 Solitary pulmonary nodule; I25.10 Atherosclerotic heart disease of native coronary artery without angina pectoris ==

== ENCOUNTER → 2024-03-25 | Outpatient (CLI) | payer OTHER | END | disposition home or self-care (01) | LOC: ORTHO 03:11 | PROVIDERS: ATTEND Orthopaedic Surgery | DX: M25.561 Pain in right knee (principal); M25.562 Pain in left knee ==

== ENCOUNTER → 2024-03-26 | Emergency (ER) | payer OTHER ==
[~2024-03-26] VITALS: Ht 172.7 cm; Wt 90.7 kg
[~2024-03-26] MED LIST changes: +SODIUM CHLORIDE 0.9% 1,000 ML IV ONE
[2024-03-26 15:57] LABS: BASO # 0.1 10*3/uL (0.0-0.1); BASO % 0.8 % (0.0-1.0); EOS # 0.1 10*3/uL (0.0-0.4); EOS % 1.2 % (1.0-4.0); HEMATOCRIT 47.7 % (42.0-52.0); LYMPH # 2.6 10*3/uL (1.3-4.4); LYMPH % 34.9 % (27.0-41.0); MEAN CELL VOLUME 90.7 fl (80.0-94.0); MEAN CORPUSCULAR HGB 30.4 pg (27.0-31.0); MEAN CORPUSCULAR HGB CONC 33.5 g/dl (33.0-37.0); MEAN PLATELET VOLUME 9.6 fl (9.6-12.3); MONO # 0.7 10*3/uL (0.1-1.0); NEUT % 53.8 % (47.0-73.0); PLATELET COUNT AUTOMATED 210 10*3/uL (130-400); RED BLOOD COUNT 5.26 10*6/uL (4.50-5.90); RED CELL DISTRI WIDTH 12.9 % (0-14.5); WHITE BLOOD COUNT 7.5 10*3/uL (4.8-10.8)
[2024-03-26 16:20] LABS: ACT PARTIAL THROMBO TIME 28.1 SECONDS (20.0-32.1)
[2024-03-26 16:25] LABS: ALKALINE PHOSPHATASE 65 U/L (46-116); BUN 14 mg/dl (9-23); CHLORIDE 104 mmol/L (98-107); POTASSIUM 4.1 mmol/L (3.4-5.1); SGPT/ALT 20 U/L (5-49); TOTAL PROTEIN 7.2 gm/dL (6.0-8.0)
[2024-03-26 16:28] LABS: ETHYL ALCOHOL < 3.0 mg/dl (<3)
== END ==
LOC: ED 15:35
PROVIDERS: Internal Medicine
DX: J45.901 Unspecified asthma with (acute) exacerbation (principal); K21.9 Gastro-esophageal reflux disease without esophagitis; J44.9 Chronic obstructive pulmonary disease, unspecified; E78.00 Pure hypercholesterolemia, unspecified; J45.909 Unspecified asthma, uncomplicated; M79.7 Fibromyalgia; F17.210 Nicotine dependence, cigarettes, uncomplicated; Z98.890 Other specified postprocedural states

== ENCOUNTER → 2024-12-15 | Outpatient (CLI) | payer OTHER ==
[~2024-12-15] MED LIST changes: -SODIUM CHLORIDE 0.9% 1,000 ML IV ONE
== END | disposition home or self-care (01) ==
LOC: CT 13:24
PROVIDERS: ATTEND Physician Assistant
DX: J32.0 Chronic maxillary sinusitis (principal); J32.1 Chronic frontal sinusitis; J32.2 Chronic ethmoidal sinusitis

== ENCOUNTER → 2024-12-22 | Outpatient (CLI) | payer OTHER ==
[2024-12-23 15:07] LABS: ALBUMIN 3.5 g/dL (2.9-4.4); ALPHA-1-GLOBULIN 0.2 g/dL (0.0-0.4); ALPHA-2-GLOBULIN 0.7 g/dL (0.4-1.0); BETA GLOBULIN 1.2 g/dL (0.7-1.3); GAMMA GLOBULIN 1.3 g/dL (0.4-1.8); GLOBULIN, TOTAL 3.4 g/dL (2.2-3.9)
== END | disposition home or self-care (01) ==
LOC: LAB 15:38
PROVIDERS: ATTEND Psychiatry & Neurology Neurology
DX: M79.2 Neuralgia and neuritis, unspecified (principal)

== ENCOUNTER → 2025-02-21 | Outpatient (CLI) | payer OTHER ==
[~2025-02-21] MED LIST changes: +GADOTERATE MEGLUMINE 10 MMOL/20 ML VIAL IV ONE
== END | disposition home or self-care (01) ==
LOC: MRI 08:37
PROVIDERS: ATTEND Psychiatry & Neurology Neurology
DX: M47.812 Spondylosis without myelopathy or radiculopathy, cervical region (principal); G82.50 Quadriplegia, unspecified; M48.03 Spinal stenosis, cervicothoracic region

== ENCOUNTER → 2025-03-13 | Outpatient (CLI) | payer OTHER | END | disposition home or self-care (01) | LOC: MRI 02-21 09:00 | PROVIDERS: ATTEND Psychiatry & Neurology Neurology | DX: M51.369 Other intervertebral disc degeneration, lumbar region without mention of lumbar back pain or lower extremity pain (principal); M48.07 Spinal stenosis, lumbosacral region; G82.50 Quadriplegia, unspecified ==

== ENCOUNTER → 2025-03-23 | Outpatient (CLI) | payer OTHER ==
[~2025-03-23] MED LIST changes: -GADOTERATE MEGLUMINE 10 MMOL/20 ML VIAL IV ONE
== END | disposition home or self-care (01) ==
LOC: CT 08:41
PROVIDERS: ATTEND Physician Assistant
DX: Z12.2 Encounter for screening for malignant neoplasm of respiratory organs (principal); I25.10 Atherosclerotic heart disease of native coronary artery without angina pectoris; J98.11 Atelectasis; R91.1 Solitary pulmonary nodule; F17.210 Nicotine dependence, cigarettes, uncomplicated

== ENCOUNTER → 2025-04-18 | Outpatient (CLI) | payer OTHER ==
[2025-04-18 14:20] LABS: MEAN CELL VOLUME 90.6 fl (80.0-94.0); MEAN CORPUSCULAR HGB 30.3 pg (27.0-31.0); MEAN CORPUSCULAR HGB CONC 33.4 g/dl (33.0-37.0); MEAN PLATELET VOLUME 9.4 fl (9.6-12.3); RED BLOOD COUNT 5.52 10*6/uL (4.50-5.90); RED CELL DISTRI WIDTH 12.5 % (0-14.5); WHITE BLOOD COUNT 6.6 10*3/uL (4.8-10.8)
[2025-04-18 14:48] LABS: ALKALINE PHOSPHATASE 64 U/L (46-116); BUN 13 mg/dl (9-23); CHLORIDE 104 mmol/L (98-107); CHOLESTEROL 243 mg/dL (<200); LDL CHOLESTEROL 171 mg/dL (9-159); SGPT/ALT 19 U/L (5-49); TOTAL PROTEIN 7.2 gm/dL (6.0-8.0); TRIGLYCERIDES 156 mg/dl (<150)
[2025-04-18 14:55] LABS: POTASSIUM 5.1 mmol/L (3.4-5.1)
== END | disposition home or self-care (01) ==
LOC: LAB 13:57
PROVIDERS: ATTEND Physician Assistant
DX: J44.9 Chronic obstructive pulmonary disease, unspecified (principal); E78.5 Hyperlipidemia, unspecified; M79.7 Fibromyalgia; J45.40 Moderate persistent asthma, uncomplicated; E03.9 Hypothyroidism, unspecified; G62.9 Polyneuropathy, unspecified; F17.201 Nicotine dependence, unspecified, in remission

== ENCOUNTER 2025-07-14 10:09 | Emergency (ER) | payer OTHER ==
[~2025-07-14] VITALS: Ht 175.2 cm; Wt 90.7 kg
[2025-07-14] MEDS ORDERED: Lidocaine Hydrochloride 10 ML SYR UR ONE (10:30)
[2025-07-14] MEDS ORDERED: Ondansetron4 MG PO (10:43)
[2025-07-14] MEDS ORDERED: PENICILLIN VK500 MG PO (10:43)
== END 2025-07-14 10:48 | disposition home or self-care (01) ==
LOC: ED 10:09
DX: K04.7 Periapical abscess without sinus (principal); F17.210 Nicotine dependence, cigarettes, uncomplicated; Z79.899 Other long term (current) drug therapy

== ENCOUNTER → 2025-07-27 | Outpatient (CLI) | payer OTHER ==
[~2025-07-27] MED LIST changes: +Ondansetron4 MG PO; +PENICILLIN VK500 MG PO
== END | disposition home or self-care (01) ==
LOC: CT 11:00
PROVIDERS: ATTEND Otolaryngology Plastic Surgery within the Head & Neck
DX: J32.2 Chronic ethmoidal sinusitis (principal); J34.2 Deviated nasal septum; J33.8 Other polyp of sinus

== ENCOUNTER → 2025-10-17 | Outpatient (CLI) | payer OTHER ==
[2025-10-17 16:05] LABS: MEAN CELL VOLUME 91.8 fl (80.0-94.0); MEAN CORPUSCULAR HGB 30.5 pg (27.0-31.0); MEAN PLATELET VOLUME 9.5 fl (9.6-12.3); NUCLEATED RED BLOOD CELL 0.0 % (0.0-0.0); NUCLEATED RED BLOOD CELL 0.0 10*3/uL (0.0-0.0); PLATELET COUNT AUTOMATED 195.0 10*3/uL (130-400); RED CELL DISTRI WIDTH 12.8 % (0-14.5)
[2025-10-17 16:31] LABS: BUN 12 mg/dl (9-23); LDL CHOLESTEROL 179 mg/dL (9-159); SGPT/ALT 21 U/L (5-49)
== END | disposition home or self-care (01) ==
LOC: LAB 14:50
PROVIDERS: ATTEND Physician Assistant
DX: Z12.5 Encounter for screening for malignant neoplasm of prostate (principal); K64.9 Unspecified hemorrhoids; E78.5 Hyperlipidemia, unspecified; R19.7 Diarrhea, unspecified; E03.9 Hypothyroidism, unspecified